=== PATIENT | female | born 1960 | race Caucasian/White ===

== ENCOUNTER 2016-12-05 16:43 | Inpatient (IN) | payer BC ==
[2016-12-05] MEDS ORDERED: DIPH,PERTUS(ACELL)TETVAC-LF 0.5 ML VIAL IM ONE (17:26)
[2016-12-05] MEDS ORDERED: IBUPROFEN 400 MG TAB PO PRN (18:07)
[2016-12-05] MEDS ORDERED: MORPHINE SULFATE 4 MG/ML SYRINGE IV PRN (18:07)
[2016-12-05] MEDS ORDERED: ACETAMINOPHEN TAB 325 MG TAB PO PRN (18:07)
[2016-12-05] MEDS ORDERED: ONDANSETRON 4 MG/2 ML VIAL IVP PRN (18:07)
[2016-12-05] MEDS ORDERED: NALOXONE 0.4 MG/ML 1 ML VIAL IV PRN (18:07)
[2016-12-05] MEDS ORDERED: AMPICILLIN-SULBACTAM 3 GM in SODIUM CHLORIDE 0.9% 100 ML IVPB STA (18:10)
--- NOTE | 2016-12-05 18:15 | ED ---
General Adult HPI - General Chief complaint: Animal Bite Stated complaint: cat bite/thumb & toe injury Time Seen by Provider: 12/05/16 17:26 Source: patient, RN notes reviewed Mode of arrival: ambulatory Limitations: no limitations - History of Present Illness Initial comments: Patient is a 56-year-old female presents to the emergency room for evaluation. Patient states that yesterday she was walking up steps and accidentally stubbed her right toe. Patient states she's having pain at the base of the right toe going up her foot. Patient denies taking Tylenol or Motrin for pain. Patient denies numbness or tingling in her toe. Patient also states that she was bit by a family members' cat over her left thumb yesterday. Patient states her thumb has become swollen and painful since. Patient states she has pain while trying to flex her thumb. Patient denies numbness or tingling in her thumb. Patient states the cat is up to date on immunizations. Patient states she's not up-to-date on her tetanus vaccine. Patient denies any other symptoms or complaints. - Related Data Home Medications Medication Instructions Recorded Confirmed Divalproex [Depakote] 1,000 mg PO HS 05/01/15 12/05/16 Hydrochlorothiazide [Hydrodiuril] 25 mg PO DAILY 05/01/15 12/05/16 QUEtiapine XR [SEROquel XR] 200 mg PO HS 05/01/15 12/05/16 Simvastatin [Zocor] 20 mg PO HS 05/01/15 12/05/16 Venlafaxine HCl ER [Effexor Xr] 150 mg PO DAILY 05/01/15 12/05/16 Atenolol [Tenormin] 50 mg PO DAILY 12/05/16 12/05/16 Dextroamphetamine/Amphetamine 20 mg PO QAM 12/05/16 12/05/16 [Adderall Xr] QUEtiapine [SEROquel] 50 mg PO HS 12/05/16 12/05/16 Zolpidem [Ambien] 10 mg PO HS PRN 12/05/16 12/05/16 clonazePAM [KlonoPIN] 0.5 mg PO DAILY 12/05/16 12/05/16 metFORMIN HCL [Glucophage] 500 mg PO DAILY 12/05/16 12/05/16 Allergies Allergy/AdvReac Type Severity Reaction Status Date / Time aminophylline Allergy Rash/Hives Verified 12/05/16 19:01 levofloxacin [From Levaquin] Allergy Rash/Hives Verified 12/05/16 19:01 phenobarbital Allergy Rash/Hives Verified 12/05/16 19:01 Review of Systems ROS Statement: Those systems with pertinent positive or pertinent negative responses have been documented in the HPI. ROS Other: All systems not noted in ROS Statement are negative. Past Medical History Past Medical History: Cancer, Diabetes Mellitus, GERD/Reflux, Hyperlipidemia, Hypertension, Skin Disorder History of Any Multi-Drug Resistant Organisms: None Reported Past Surgical History: Hysterectomy, Tonsillectomy Additional Past Surgical History / Comment(s): foot, tendon repair, melanoma removal Past Psychological History: Anxiety, Bipolar, Depression Smoking Status: Never smoker Past Alcohol Use History: Occasional Past Drug Use History: None Reported - Past Family History Father Family Medical History: Cancer Additional Family Medical History / Comment(s): at age 64 from lung cancer w/mets to brain Mother Family Medical History: Hypertension, Renal Disease General Exam - General Exam Comments Initial Comments: Sitting in exam room, no acute distress. Limitations: no limitations General appearance: alert, in no apparent distress Head exam: Present: atraumatic, normocephalic, normal inspection Eye exam: Present: normal appearance ENT exam: Present: normal exam Neck exam: Present: normal inspection Respiratory exam: Present: normal lung sounds bilaterally. Absent: respiratory distress Cardiovascular Exam: Present: regular rate, normal rhythm, normal heart sounds Left Hand Wrist exam: Present: tenderness, swelling. Absent: normal inspection ( puncture wound from Bite over middle phalanx of left thumb. Surrounding erythema and edema.), full ROM (limited flexion of thumb secondary to pain and edema) Vascular: Present: normal capillary refill (capillary refill less than 2 seconds ), radial pulse (2+), ulnar pulse (2+) Right Foot/Toe exam: Present: full ROM, tenderness (First MTP joint), swelling (first MTP joint) Neurovascular tendon exam: Present: no vascular compromise. Absent: pulse deficit (2+ dorsal pedal and posterior tibial pulses), abnormal cap refill ( capillary refill is in 2 seconds) Back exam: Present: normal inspection Neurological exam: Present: alert, oriented X3, CN II-XII intact Psychiatric exam: Present: normal affect, normal mood Skin exam: Present: warm, dry, normal color. Absent: rash Course Vital Signs 12/05/16 12/05/16 16:51 18:58 Temperature 98 F 98.9 F Pulse Rate 82 80 Respiratory 16 16 Rate Blood Pressure 141/82 156/78 O2 Sat by Pulse 98 99 Oximetry Medical Decision Making - Medical Decision Making Patient is a 48-year-old female since emergency room for evaluation of right great toe pain and left thumb Late. X-ray of right foot shows no acute fractures or dislocations. Advised patient to ice and elevate and follow up with primary care provider symptoms aren't improving in 7-10 days. Patient does have a puncture wound of left hand with surrounding erythema that traveling up the wrist. Case was discussed with Dr. Simental who also evaluated patient. Dr. Simental discussed case with Dr. Robles agreed to admit patient for further evaluation. Patient was started on IV Unasyn. - Lab Data Result diagrams: 12/05/16 18:35 12/05/16 18:35 - Radiology Data Radiology results: report reviewed, image reviewed Disposition Clinical Impression: Cat bite Disposition: ADMITTED IP TO THIS [facility] Condition: Stable Decision Date: 12/05/16
--- NOTE | 2016-12-05 18:16 | XR ---
EXAMINATION TYPE: XR hand complete LT DATE OF EXAM: 12/05/2016 COMPARISON: NONE HISTORY: Cat bite pain TECHNIQUE: 3 views FINDINGS: I see no fracture nor dislocation. Joint spaces are normal. The thumb appears intact. IMPRESSION: Negative left hand exam.
--- NOTE | 2016-12-05 18:17 | XR ---
EXAMINATION TYPE: XR foot complete RT DATE OF EXAM: 12/05/2016 COMPARISON: 02/22/2014 HISTORY: Pain TECHNIQUE: 3 views FINDINGS: I see no fracture nor dislocation. Metatarsals are intact. The total appears intact. There is plantar calcaneal spur. IMPRESSION: No acute abnormality of the right foot. No fracture. No change.
[2016-12-05] MEDS: KETOROLAC 30 MG/ML 1 ML VIAL IVP PRN ×2 (18:43→23:15)
[2016-12-05 18:48] LABS: Basophils # (A) 0.1 k/uL (0-0.2); Basophils % (A) 1 %; CH 30.8; CHCM 33.6; Eosinophils # (A) 0.2 k/uL (0-0.7); Eosinophils % (A) 2 %; HCT 40.5 % (34.0-46.0); HDW 2.45; HGB 13.7 gm/dL (11.4-16.0); Luc # (Auto) 0.09; Luc % (Auto) 1; Lymphocytes # (A) 1.8 k/uL (1.0-4.8); Lymphocytes % (A) 24 %; MCH 31.3 pg (25.0-35.0); MCV 92.2 fL (80.0-100.0); Mean Platelet Volume 6.9; Monocytes # (A) 0.4 k/uL (0-1.0); Monocytes % (A) 5 %; Neutrophils % (A) 67 %; RBC 4.39 m/uL (3.80-5.40); RDW 14.6 % (11.5-15.5); WBC 7.4 k/uL (3.8-10.6); WBC (Perox) 7.73
[2016-12-05] MEDS: SODIUM CHLORIDE 0.9% 1,000 ML IV SCH (18:48)
[2016-12-05 18:58] LABS: ALT 61 U/L (9-52); AST 38 U/L (14-36); Alkaline Phosphatase 80 U/L (38-126); Anion Gap 11 mmol/L; Blood Urea Nitrogen 15 mg/dL (7-17); Calcium 9.6 mg/dL (8.4-10.2); Carbon Dioxide 31 mmol/L (22-30); Chloride 99 mmol/L (98-107); Glucose 119 mg/dL (74-99); Non-African American GFR(MDRD) >60 (>60 ml/min/1.73 sqM); Potassium 3.7 mmol/L (3.5-5.1); Sodium 141 mmol/L (137-145); Total Bilirubin 0.8 mg/dL (0.2-1.3); Total Protein 6.7 g/dL (6.3-8.2)
[2016-12-05 19:19] VITALS: RESP 18
[2016-12-05 20:43] LABS: Glucose,Whole Blood 131 mg/dL (75-99)
[2016-12-05] MEDS ORDERED: ZOLPIDEM 10 MG TAB PO PRN (20:53)
[2016-12-05] MEDS ORDERED: QUEtiapine 50 MG TAB PO SCH (21:00)
[2016-12-05] MEDS ORDERED: ATORVASTATIN 10 MG TAB PO SCH (21:00)
[2016-12-05] MEDS ORDERED: NON-FORMULARY DRUG (Dextroamphetamine/Amphetamine [Adderall Xr] 20 MG) PO SCH (21:00)
[2016-12-05] MEDS ORDERED: DIVALPROEX 500 MG TABLET.DR PO SCH (21:00)
[2016-12-05] MEDS: HYDROCHLOROTHIAZIDE 25 MG TAB PO SCH (21:38)
[2016-12-05] MEDS: clonazePAM 0.5 MG TAB PO SCH (21:38)
[2016-12-05] MEDS: VENLAFAXINE HCL ER 150 MG CAP PO SCH (21:39)
[2016-12-05] MEDS: ATENOLOL 50 MG TAB PO SCH (21:39)
[2016-12-05] MEDS: metFORMIN 500 MG TAB PO SCH (21:39)
[2016-12-06 07:03] LABS: Glucose,Whole Blood 118 mg/dL (75-99)
[2016-12-06 07:22] LABS: Basophils % (A) 0 %; CH 31.1; CHCM 32.7; Eosinophils # (A) 0.2 k/uL (0-0.7); Eosinophils % (A) 3 %; HCT 37.8 % (34.0-46.0); HGB 12.3 gm/dL (11.4-16.0); Luc % (Auto) 2; Lymphocytes # (A) 2.2 k/uL (1.0-4.8); Lymphocytes % (A) 37 %; MCH 31.2 pg (25.0-35.0); MCHC 32.7 g/dL (31.0-37.0); MCV 95.7 fL (80.0-100.0); Mean Platelet Volume 7.5; Monocytes # (A) 0.4 k/uL (0-1.0); Monocytes % (A) 7 %; Neutrophils % (A) 52 %; RBC 3.95 m/uL (3.80-5.40); RDW 15.2 % (11.5-15.5); WBC 5.8 k/uL (3.8-10.6); WBC (Perox) 6.14
[2016-12-06 07:35] LABS: ALT 53 U/L (9-52); AST 32 U/L (14-36); Alkaline Phosphatase 66 U/L (38-126); Anion Gap 9 mmol/L; Blood Urea Nitrogen 17 mg/dL (7-17); Calcium 8.9 mg/dL (8.4-10.2); Carbon Dioxide 29 mmol/L (22-30); Chloride 104 mmol/L (98-107); Glucose 113 mg/dL (74-99); Non-African American GFR(MDRD) >60 (>60 ml/min/1.73 sqM); Potassium 3.7 mmol/L (3.5-5.1); Sodium 142 mmol/L (137-145); Total Bilirubin 0.6 mg/dL (0.2-1.3); Total Protein 5.6 g/dL (6.3-8.2)
[2016-12-06 08:14] VITALS: BP 109/51; PULSE 53; TEMP 97.4
[2016-12-06] MEDS: metFORMIN 500 MG TAB PO SCH (08:16)
[2016-12-06] MEDS: ATENOLOL 50 MG TAB PO SCH (08:16)
[2016-12-06] MEDS: VENLAFAXINE HCL ER 150 MG CAP PO SCH (08:16)
[2016-12-06] MEDS: HYDROCHLOROTHIAZIDE 25 MG TAB PO SCH (08:16)
[2016-12-06] MEDS: SODIUM CHLORIDE 0.9% 1,000 ML IV SCH (08:16)
[2016-12-06] MEDS: clonazePAM 0.5 MG TAB PO SCH (08:19)
--- NOTE | 2016-12-06 09:14 | P.HPOR ---
History of Present Illness H&P Date: 12/06/16 Chief Complaint: Cat bite left thumb Pleasant 56 year old female presented to the ER yesterday with complaints of a cat bite to her left thumb from 12/04. She was trying to give her cat a sitz bath when it bit her on the left thumb. She states the cat is up to date on all of its vaccinations. She states the wound has been draining a clear/bloody fluid and the thumb has become stiff and erythema has spread up to the base of her 1st metacarpal. The same day, 12/04, she was walking in her front lawn and was going to step up on the driveway when her right great toe flexed and stubbed against the concrete. The toe has been painful at the MTP and has become stiff since the injury. In the ER X-ray of the toe and thumb were negative and she was started on Unasyn for the cat bite. This morning she states the stiffness in the left thumb has gone down but it feels like the dorsum of her hand is bruised. She denies numbness/tingling in her extremities, fever, chills, nausea/vomiting. Past Medical History Past Medical History: Cancer, Diabetes Mellitus, GERD/Reflux, Hyperlipidemia, Hypertension, Skin Disorder Additional Past Medical History / Comment(s): FATTY LIVER, DOES'NT USE CPAP MACHINE. PAST MELANOMA ON BACK OF LT SHOULDER, HIATAL HERNIA, ANX.DEPRESSION, BIPOLAR, BROKE RT FOOT 2013, CHRONIC BACK PAIN SCIATIC NERVE PAIN DOES DOWN RT BUTTOCK/LEG, "SEASONAL ASTHMA"/BRONCHITS History of Any Multi-Drug Resistant Organisms: None Reported Past Surgical History: Hysterectomy, Tonsillectomy Additional Past Surgical History / Comment(s): foot, tendon repair, melanoma removal Past Anesthesia/Blood Transfusion Reactions: No Reported Reaction Past Psychological History: Anxiety, Bipolar, Depression Smoking Status: Never smoker Past Alcohol Use History: Occasional Past Drug Use History: None Reported - Past Family History Father Family Medical History: Cancer Additional Family Medical History / Comment(s): at age 64 from lung cancer w/mets to brain Mother Family Medical History: Hypertension, Renal Disease Medications and Allergies Home Medications Medication Instructions Recorded Confirmed Type Divalproex [Depakote] 1,000 mg PO HS 05/01/15 12/05/16 History Hydrochlorothiazide [Hydrodiuril] 25 mg PO DAILY 05/01/15 12/05/16 History QUEtiapine XR [SEROquel XR] 200 mg PO HS 05/01/15 12/05/16 History Simvastatin [Zocor] 20 mg PO HS 05/01/15 12/05/16 History Venlafaxine HCl ER [Effexor Xr] 150 mg PO DAILY 05/01/15 12/05/16 History Atenolol [Tenormin] 50 mg PO DAILY 12/05/16 12/05/16 History Dextroamphetamine/Amphetamine 20 mg PO QAM 12/05/16 12/05/16 History [Adderall Xr] QUEtiapine [SEROquel] 50 mg PO HS 12/05/16 12/05/16 History Zolpidem [Ambien] 10 mg PO HS PRN 12/05/16 12/05/16 History clonazePAM [KlonoPIN] 0.5 mg PO DAILY 12/05/16 12/05/16 History metFORMIN HCL [Glucophage] 500 mg PO DAILY 12/05/16 12/05/16 History Allergies Allergy/AdvReac Type Severity Reaction Status Date / Time aminophylline Allergy Rash/Hives Verified 12/05/16 19:01 levofloxacin [From Levaquin] Allergy Rash/Hives Verified 12/05/16 19:01 phenobarbital Allergy Rash/Hives Verified 12/05/16 19:01 Physical Examination There is an open 1 cm wound on the dorsum of her left thumb over the middle portion of the proximal phalanx with no extension over the MTP or IP joints. There is also a single puncture wound over the volar aspect of the 1st MTP joint of the left hand. There is minimal reduction in active range of motion of the thumb with opposition intact. Erythema extends on the dorsum of the left hand to the base of the 1st metacarpal but dose not extend medially. Right great toe - erythema over the dorsal side of the MTP, skin is intact, neurovascularly intact with minimal reduction of active flexion. Results xray of the left hand reveals no fracture or bony abnormality, minimal soft tissue swelling. Xray of right foot reveals no fracture or bony abnormality. - Labs Labs: Abnormal Lab Results - Last 24 Hours (Table) 12/05/16 12/05/16 12/06/16 Range/Units 18:35 20:41 06:54 Carbon Dioxide 31 H (22-30) mmol/L Glucose 119 H 113 H (74-99) mg/dL POC Glucose (mg/dL) 131 H (75-99) mg/dL AST 38 H (14-36) U/L ALT 61 H 53 H (9-52) U/L Total Protein 5.6 L (6.3-8.2) g/dL 12/06/16 Range/Units 07:02 Carbon Dioxide (22-30) mmol/L Glucose (74-99) mg/dL POC Glucose (mg/dL) 118 H (75-99) mg/dL AST (14-36) U/L ALT (9-52) U/L Total Protein (6.3-8.2) g/dL H & H 12/05/16 12/06/16 Range/Units 18:35 06:54 Hgb 13.7 12.3 (11.4-16.0) gm/dL Hct 40.5 37.8 (34.0-46.0) % Result Diagrams: 12/06/16 06:54 12/06/16 06:54 Assessment and Plan (1) Cat bite Status: Acute (2) Cellulitis of left hand Status: Acute (3) Contusion of right great toe without damage to nail Status: Acute Plan: Left thumb - warm soaks BID, K-pad as tolerated, encouraged movement of the left hand and fingers, NPO after midnight and will reevaluate in the morning, defer antibiotic treatment to IM Right great toe - rigid sole post op shoe Time with Patient: Less than 30
[2016-12-06 11:58] LABS: Glucose,Whole Blood 135 mg/dL (75-99)
[2016-12-06] MEDS ORDERED: AMPICILLIN-SULBACTAM 3 GM in SODIUM CHLORIDE 0.9% 100 ML IVPB SCH (12:00)
--- NOTE | 2016-12-06 13:54 | P.HPIM ---
History of Present Illness Pleasant 56 year old female presented to the ER yesterday with complaints of a cat bite to her left thumb from 12/04. Patient is found as the lightest of the left, extending from proximal interphalangeal area up to the base of the thumb with a lymphangitic streaking, patient was given Unasyn with improvement in her symptoms and patient has much significant improvement I do not believe patient will need to stay in the hospital for IV antibiotics and patient will be discharged on Augmentin. Swelling is very minimal at this point of time redness is very minimal at this time. She and also had a traumatic injury to the right great toe with some inflammation without any cellulitis or fracture . She denies numbness/tingling in her extremities, fever, chills, nausea/ vomiting. Review of Systems REVIEW OF SYSTEMS: CONSTITUTIONAL: No fever, no malaise, no fatigue. HEENT: No recent visual problems or hearing problems. Denied any sore throat. CARDIOVASCULAR: No chest pain, orthopnea, PND, no palpitations, no syncope. PULMONARY: No shortness of breath, no cough, no hemoptysis. GASTROINTESTINAL: No diarrhea, no nausea, no vomiting, no abdominal pain. Normoactive bowel sounds. NEUROLOGICAL: No headaches, no weakness, no numbness. HEMATOLOGICAL: Denies any bleeding or petechiae. GENITOURINARY: Denies any burning micturition, frequency, or urgency. MUSCULOSKELETAL/RHEUMATOLOGICAL: As mentioned in HPI ENDOCRINE: Denies any polyuria or polydipsia. The rest of the 14-point review of systems is negative. Past Medical History Past Medical History: Cancer, Diabetes Mellitus, GERD/Reflux, Hyperlipidemia, Hypertension, Skin Disorder Additional Past Medical History / Comment(s): FATTY LIVER, DOES'NT USE CPAP MACHINE. PAST MELANOMA ON BACK OF LT SHOULDER, HIATAL HERNIA, ANX.DEPRESSION, BIPOLAR, BROKE RT FOOT 2013, CHRONIC BACK PAIN SCIATIC NERVE PAIN DOES DOWN RT BUTTOCK/LEG, "SEASONAL ASTHMA"/BRONCHITS History of Any Multi-Drug Resistant Organisms: None Reported Past Surgical History: Hysterectomy, Tonsillectomy Additional Past Surgical History / Comment(s): foot, tendon repair, melanoma removal Past Anesthesia/Blood Transfusion Reactions: No Reported Reaction Past Psychological History: Anxiety, Bipolar, Depression Smoking Status: Never smoker Past Alcohol Use History: Occasional Past Drug Use History: None Reported - Past Family History Father Family Medical History: Cancer Additional Family Medical History / Comment(s): at age 64 from lung cancer w/mets to brain Mother Family Medical History: Hypertension, Renal Disease Medications and Allergies Home Medications Medication Instructions Recorded Confirmed Type Divalproex [Depakote] 1,000 mg PO HS 05/01/15 12/05/16 History Hydrochlorothiazide [Hydrodiuril] 25 mg PO DAILY 05/01/15 12/05/16 History QUEtiapine XR [SEROquel XR] 200 mg PO HS 05/01/15 12/05/16 History Simvastatin [Zocor] 20 mg PO HS 05/01/15 12/05/16 History Venlafaxine HCl ER [Effexor Xr] 150 mg PO DAILY 05/01/15 12/05/16 History Atenolol [Tenormin] 50 mg PO DAILY 12/05/16 12/05/16 History Dextroamphetamine/Amphetamine 20 mg PO QAM 12/05/16 12/05/16 History [Adderall Xr] QUEtiapine [SEROquel] 50 mg PO HS 12/05/16 12/05/16 History Zolpidem [Ambien] 10 mg PO HS PRN 12/05/16 12/05/16 History clonazePAM [KlonoPIN] 0.5 mg PO DAILY 12/05/16 12/05/16 History metFORMIN HCL [Glucophage] 500 mg PO DAILY 12/05/16 12/05/16 History Amoxicillin/Potassium Clav 1 tab PO Q12HR 12/06/16 12/06/16 History [Augmentin 875-125 Tablet] Allergies Allergy/AdvReac Type Severity Reaction Status Date / Time aminophylline Allergy Rash/Hives Verified 12/05/16 19:01 levofloxacin [From Levaquin] Allergy Rash/Hives Verified 12/05/16 19:01 phenobarbital Allergy Rash/Hives Verified 12/05/16 19:01 Physical Exam Vitals: Vital Signs Temp Pulse Pulse Pulse Resp BP BP 12/06/16 08:00 97.4 F L 53 L 18 109/51 12/06/16 04:00 97.9 F 65 18 153/75 12/05/16 23:57 18 12/05/16 20:00 18 12/05/16 19:18 97.8 F 71 18 178/84 12/05/16 18:58 98.9 F 80 16 156/78 12/05/16 16:51 98 F 82 16 141/82 Pulse Ox 12/06/16 08:00 96 12/06/16 04:00 96 12/05/16 23:57 12/05/16 20:00 12/05/16 19:18 96 12/05/16 18:58 99 12/05/16 16:51 98 Intake and Output 12/05/16 12/06/16 12/06/16 22:59 06:59 14:59 Other: Voiding Method Toilet Toilet Toilet Weight 131.5 kg PHYSICAL EXAMINATION: GENERAL: The patient is alert and oriented x3, not in any acute distress. Well developed, well nourished. HEENT: Pupils are round and equally reacting to light. EOMI. No scleral icterus. No conjunctival pallor. Normocephalic, atraumatic. No pharyngeal erythema. No thyromegaly. CARDIOVASCULAR: S1 and S2 present. No murmurs, rubs, or gallops. PULMONARY: Chest is clear to auscultation, no wheezing or crackles. ABDOMEN: Soft, nontender, nondistended, normoactive bowel sounds. No palpable organomegaly. MUSCULOSKELETAL: As mentioned in HPI EXTREMITIES: No cyanosis, clubbing, or pedal edema. NEUROLOGICAL: Gross neurological examination did not reveal any focal deficits. SKIN: No rashes. Results CBC & Chem 7: 12/06/16 06:54 12/06/16 06:54 Labs: Abnormal Lab Results - Last 24 Hours (Table) 12/05/16 12/05/16 12/06/16 Range/Units 18:35 20:41 06:54 Carbon Dioxide 31 H (22-30) mmol/L Glucose 119 H 113 H (74-99) mg/dL POC Glucose (mg/dL) 131 H (75-99) mg/dL AST 38 H (14-36) U/L ALT 61 H 53 H (9-52) U/L Total Protein 5.6 L (6.3-8.2) g/dL 12/06/16 12/06/16 Range/Units 07:02 11:56 Carbon Dioxide (22-30) mmol/L Glucose (74-99) mg/dL POC Glucose (mg/dL) 118 H 135 H (75-99) mg/dL AST (14-36) U/L ALT (9-52) U/L Total Protein (6.3-8.2) g/dL Thrombosis Risk Factor Assmnt - Choose All That Apply Any of the Below Risk Factors Present?: Yes Each Factor Represents 1 point: Age 41-60 years, Obesity (BMI >25) Other Risk Factors: No Other congenital or acquired thrombophilia - If yes, enter type in comment: No Thrombosis Risk Factor Assessment Total Risk Factor Score: 2 Thrombosis Risk Factor Assessment Level: Low Risk Assessment and Plan Plan: #1 cellulitis, of the right thumb secondary to cat bite, patient received tetanus toxoid immunization and patient was discharged on Augmentin. 2 inflammation of the right great toe secondary to trauma without any fracture or cellulitis. #3 gastroesophageal reflux disease #4 hypertension #5 hyperlipidemia #6 type 2 diabetes mellitus For above-mentioned chronic medical problems patient will continue her home medications and patient will be discharged today with Augmentin for 7 days and follow up with primary care physician and orthopedic surgery as an outpatient
--- NOTE | 2016-12-06 13:54 | P.DS ---
Providers Date of admission: 12/06/16 09:28 Attending physician: José Rodríguez Consults: 12/05/16 20:57 Consult Physician Routine Consulting Provider: Reece Barfield Consult Reason/Comments: medical management Do you want consulting provider notified?: Yes, Notify in am Primary care physician: Kristie Villasenor [facility] Hospital Course: Please refer to my HPI Patient Condition at Discharge: Stable Plan - Discharge Summary New Discharge Prescriptions: No Action Venlafaxine HCl ER [Effexor Xr] 150 mg PO DAILY Simvastatin [Zocor] 20 mg PO HS QUEtiapine XR [SEROquel XR] 200 mg PO HS Divalproex [Depakote] 1,000 mg PO HS Hydrochlorothiazide [Hydrodiuril] 25 mg PO DAILY clonazePAM [KlonoPIN] 0.5 mg PO DAILY Dextroamphetamine/Amphetamine [Adderall Xr] 20 mg PO QAM Atenolol [Tenormin] 50 mg PO DAILY QUEtiapine [SEROquel] 50 mg PO HS metFORMIN HCL [Glucophage] 500 mg PO DAILY Zolpidem [Ambien] 10 mg PO HS PRN PRN Reason: Insomnia Amoxicillin/Potassium Clav [Augmentin 875-125 Tablet] 1 tab PO Q12HR Discharge Medication List Divalproex [Depakote] 1,000 mg PO HS 05/01/15 [History] Hydrochlorothiazide [Hydrodiuril] 25 mg PO DAILY 05/01/15 [History] QUEtiapine XR [SEROquel XR] 200 mg PO HS 05/01/15 [History] Simvastatin [Zocor] 20 mg PO HS 05/01/15 [History] Venlafaxine HCl ER [Effexor Xr] 150 mg PO DAILY 05/01/15 [History] Atenolol [Tenormin] 50 mg PO DAILY 12/05/16 [History] Dextroamphetamine/Amphetamine [Adderall Xr] 20 mg PO QAM 12/05/16 [History] QUEtiapine [SEROquel] 50 mg PO HS 12/05/16 [History] Zolpidem [Ambien] 10 mg PO HS PRN 12/05/16 [History] clonazePAM [KlonoPIN] 0.5 mg PO DAILY 12/05/16 [History] metFORMIN HCL [Glucophage] 500 mg PO DAILY 12/05/16 [History] Amoxicillin/Potassium Clav [Augmentin 875-125 Tablet] 1 tab PO Q12HR 12/06/16 [ History] Follow up Appointment(s)/Referral(s): Kristie Villasenor MD [Primary Care Provider] - 1-2 days José Rodríguez MD [STAFF PHYSICIAN] - 1 Week Patient Instructions/Handouts: Animal Bite (ED)
== END 2016-12-06 13:52 | disposition home or self-care (01) | DRG 603 ==
LOC: EC 16:43 → 3OBS 18:08 → OBSVTOIN 12-06 09:28
PROVIDERS: ADMIT Orthopaedic Surgery; ATTEND Orthopaedic Surgery
DX: L03.114 Cellulitis of left upper limb (principal); K76.0 Fatty (change of) liver, not elsewhere classified; I10 Essential (primary) hypertension; S61.432A Puncture wound without foreign body of left hand, initial encounter; K21.9 Gastro-esophageal reflux disease without esophagitis; J45.909 Unspecified asthma, uncomplicated; F41.9 Anxiety disorder, unspecified; F32.9 Major depressive disorder, single episode, unspecified; E78.5 Hyperlipidemia, unspecified; E11.9 Type 2 diabetes mellitus without complications; G89.29 Other chronic pain; K44.9 Diaphragmatic hernia without obstruction or gangrene; M54.9 Dorsalgia, unspecified; S99.821A Other specified injuries of right foot, initial encounter; Z79.84 Long term (current) use of oral hypoglycemic drugs; Z79.899 Other long term (current) drug therapy; Z88.1 Allergy status to other antibiotic agents; Z88.8 Allergy status to other drugs, medicaments and biological substances; Z85.820 Personal history of malignant melanoma of skin; Z82.49 Family history of ischemic heart disease and other diseases of the circulatory system; W55.01XA Bitten by cat, initial encounter; X58.XXXA Exposure to other specified factors, initial encounter; Y92.9 Unspecified place or not applicable
CPT/HCPCS: 80053; 83036; 85025; 87040; 90715

== ENCOUNTER 2019-11-21 03:12 | Observation (INO) | payer BC ==
[2019-11-21] MEDS ORDERED: SODIUM CHLORIDE 0.9% 1,000 ML IV STA (03:35)
--- NOTE | 2019-11-21 03:58 | XR ---
EXAMINATION TYPE: XR chest 2V DATE OF EXAM: 11/21/2019 COMPARISON: NONE HISTORY: Syncope. Weakness TECHNIQUE: FINDINGS: Heart and mediastinum are normal. Lungs are clear. Diaphragm is normal. Bony thorax appears normal. IMPRESSION: Normal chest.
--- NOTE | 2019-11-21 04:00 | ED ---
General Adult HPI - General Chief complaint: Syncope Stated complaint: Weakness Time Seen by Provider: 11/21/19 03:19 Source: patient, family Mode of arrival: EMS - History of Present Illness Initial comments: Danielle is a 59-year-old morbidly obese female who presents the ER today for evaluation after syncopal episode at home. Patient reports that she was sitting on her couch when she had an urge to have a bowel movement, she states that this is pretty typical for her she has developed some lactose intolerant and after eating cereal frequent has a sudden urge to use the restroom. Patient reports she stood up and felt lightheaded she started walking in the hallway and had a syncopal event following backwards landing on her back. She sustained a significant head trauma. She woke to her friend assisting her, she did not have any chest pain or abdominal pain nausea or vomiting. EMS was called. Patient was noted to be mildly hypotensive but otherwise well. - Related Data Home Medications Medication Instructions Recorded Confirmed Divalproex [Depakote] 1,000 mg PO HS 05/01/15 12/05/16 Hydrochlorothiazide [Hydrodiuril] 25 mg PO DAILY 05/01/15 12/05/16 QUEtiapine XR [SEROquel XR] 200 mg PO HS 05/01/15 12/05/16 Simvastatin [Zocor] 20 mg PO HS 05/01/15 12/05/16 Venlafaxine HCl ER [Effexor Xr] 150 mg PO DAILY 05/01/15 12/05/16 Atenolol [Tenormin] 50 mg PO DAILY 12/05/16 12/05/16 Dextroamphetamine/Amphetamine 20 mg PO QAM 12/05/16 12/05/16 [Adderall Xr] QUEtiapine [SEROquel] 50 mg PO HS 12/05/16 12/05/16 Zolpidem [Ambien] 10 mg PO HS PRN 12/05/16 12/05/16 clonazePAM [KlonoPIN] 0.5 mg PO DAILY 12/05/16 12/05/16 metFORMIN HCL [Glucophage] 500 mg PO DAILY 12/05/16 12/05/16 Amoxicillin/Potassium Clav 1 tab PO Q12HR 12/06/16 12/06/16 [Augmentin 875-125 Tablet] Allergies Allergy/AdvReac Type Severity Reaction Status Date / Time aminophylline Allergy Rash/Hives Verified 11/21/19 03:23 levofloxacin [From Levaquin] Allergy Rash/Hives Verified 11/21/19 03:23 phenobarbital Allergy Rash/Hives Verified 11/21/19 03:23 Review of Systems ROS Statement: Those systems with pertinent positive or pertinent negative responses have been documented in the HPI. ROS Other: All systems not noted in ROS Statement are negative. Past Medical History Past Medical History: Cancer, Diabetes Mellitus, GERD/Reflux, Hyperlipidemia, Hypertension, Skin Disorder Additional Past Medical History / Comment(s): FATTY LIVER, DOES'NT USE CPAP M [place]. PAST MELANOMA ON BACK OF LT SHOULDER, HIATAL HERNIA, ANX.DEPRESSION, BIPOLAR, BROKE RT FOOT 2013, CHRONIC BACK PAIN SCIATIC NERVE PAIN DOES DOWN RT BUTTOCK/LEG, "SEASONAL ASTHMA"/BRONCHITS History of Any Multi-Drug Resistant Organisms: None Reported Past Surgical History: Hysterectomy, Tonsillectomy Additional Past Surgical History / Comment(s): foot, tendon repair, melanoma removal Past Anesthesia/Blood Transfusion Reactions: No Reported Reaction Past Psychological History: Anxiety, Bipolar, Depression Smoking Status: Never smoker Past Alcohol Use History: Occasional Past Drug Use History: None Reported - Past Family History Father Family Medical History: Cancer Additional Family Medical History / Comment(s): at age 64 from lung cancer w/mets to brain Mother Family Medical History: Hypertension, Renal Disease General Exam - General Exam Comments Initial Comments: Physical Exam GENERAL: Patient is well-developed and well-nourished. Patient is nontoxic and well-hydrated and is in no distress. HENT: Normocephalic, Atraumatic. EYES: PERRL, EOMI PULMONARY: Unlabored respirations. CARDIOVASCULAR: RRR Warm and well perfused extremities ABDOMEN: Non-distended SKIN: No rashes or bruising : Deferred NEUROLOGIC: Alert and oriented Normal speech Normal gait MUSCULOSKELETAL: Moving all extremities with no apparent injury PSYCHIATRIC: No SI/HI Course Vital Signs 11/21/19 11/21/19 11/21/19 03:17 05:00 05:59 Temperature 97 F L 97.4 F L Pulse Rate 69 66 66 Respiratory 18 18 18 Rate Blood Pressure 96/52 114/61 137/77 O2 Sat by Pulse 96 96 95 Oximetry EKG Findings - EKG Comments: EKG Findings:: EKG was obtained due to syncope, EKG was obtained at 3:39 AM, rate is 79 rhythm is sinus with a first-degree AV block there is normal axis, IN is prolonged at 242, QRS 82 QTc [address] elevations or depressions no evidence of acute ischemia or infarction. Medical Decision Making - Medical Decision Making She was seen and evaluated history is obtained from the patient excited 59-year-old female has syncopal episode walking to the restroom was mildly hypotensive on arrival Labs and imaging were ordered EKG is nonischemic Labs with acute kidney injury no other significant abnormalities Chest x-ray unremarkable Pleurisy in the ER the patient has developed worsening right-sided chest wall pain suspect this is due to her fall from the syncopal episode, patient gas at bedside concern because she had a fall with pneumothorax, a computed tomography scan will be ordered Patient be admitted for syncope acute kidney injury persistent hypotension despite IV fluids - Lab Data Result diagrams: 11/21/19 03:48 11/21/19 03:48 Lab Results 11/21/19 11/21/19 11/21/19 Range/Units 03:48 03:48 03:48 WBC 9.2 (3.8-10.6) k/uL RBC 4.45 (3.80-5.40) m/uL Hgb 12.9 (11.4-16.0) gm/dL Hct 40.3 (34.0-46.0) % MCV 90.5 (80.0-100.0) fL MCH 28.9 (25.0-35.0) pg MCHC 31.9 (31.0-37.0) g/dL RDW 14.4 (11.5-15.5) % Plt Count 238 (150-450) k/uL Neutrophils % 66 % Lymphocytes % 25 % Monocytes % 5 % Eosinophils % 2 % Basophils % 1 % Neutrophils # 6.0 (1.3-7.7) k/uL Lymphocytes # 2.3 (1.0-4.8) k/uL Monocytes # 0.5 (0-1.0) k/uL Eosinophils # 0.2 (0-0.7) k/uL Basophils # 0.1 (0-0.2) k/uL PT 10.2 (9.0-12.0) sec INR 1.0 (<1.2) APTT 22.9 (22.0-30.0) sec D-Dimer 0.54 (<0.60) mg/L FEU Sodium 137 (137-145) mmol/L Potassium 3.9 (3.5-5.1) mmol/L Chloride 103 (98-107) mmol/L Carbon Dioxide 22 (22-30) mmol/L Anion Gap 12 mmol/L BUN 15 (7-17) mg/dL Creatinine 1.22 H (0.52-1.04) mg/dL Est GFR (CKD-EPI)AfAm 55 (>60 ml/min/1.73 sqM) Est GFR (CKD-EPI)NonAf 48 (>60 ml/min/1.73 sqM) Glucose 165 H (74-99) mg/dL Calcium 9.4 (8.4-10.2) mg/dL Total Bilirubin 0.8 (0.2-1.3) mg/dL AST 33 (14-36) U/L ALT 34 (4-34) U/L Alkaline Phosphatase 70 (38-126) U/L Troponin I (0.000-0.034) ng/mL Total Protein 5.8 L (6.3-8.2) g/dL Albumin 3.8 (3.5-5.0) g/dL Urine Color Urine Appearance (Clear) Urine pH (5.0-8.0) Ur Specific [place] (1.001-1.035) Urine Protein (Negative) Urine Glucose (UA) (Negative) Urine Ketones (Negative) Urine Blood (Negative) Urine Nitrite (Negative) Urine Bilirubin (Negative) Urine Urobilinogen (<2.0) mg/dL Ur Leukocyte Esterase (Negative) Urine RBC (0-5) /hpf Urine WBC (0-5) /hpf Ur Squamous Epith Cells (0-4) /hpf Hyaline Casts (0-2) /lpf Urine Mucus (None) /hpf 11/21/19 11/21/19 Range/Units 03:48 05:00 WBC (3.8-10.6) k/uL RBC (3.80-5.40) m/uL Hgb (11.4-16.0) gm/dL Hct (34.0-46.0) % MCV (80.0-100.0) fL MCH (25.0-35.0) pg MCHC (31.0-37.0) g/dL RDW (11.5-15.5) % Plt Count (150-450) k/uL Neutrophils % % Lymphocytes % % Monocytes % % Eosinophils % % Basophils % % Neutrophils # (1.3-7.7) k/uL Lymphocytes # (1.0-4.8) k/uL Monocytes # (0-1.0) k/uL Eosinophils # (0-0.7) k/uL Basophils # (0-0.2) k/uL PT (9.0-12.0) sec INR (<1.2) APTT (22.0-30.0) sec D-Dimer (<0.60) mg/L FEU Sodium (137-145) mmol/L Potassium (3.5-5.1) mmol/L Chloride (98-107) mmol/L Carbon Dioxide (22-30) mmol/L Anion Gap mmol/L BUN (7-17) mg/dL Creatinine (0.52-1.04) mg/dL Est GFR (CKD-EPI)AfAm (>60 ml/min/1.73 sqM) Est GFR (CKD-EPI)NonAf (>60 ml/min/1.73 sqM) Glucose (74-99) mg/dL Calcium (8.4-10.2) mg/dL Total Bilirubin (0.2-1.3) mg/dL AST (14-36) U/L ALT (4-34) U/L Alkaline Phosphatase (38-126) U/L Troponin I <0.012 (0.000-0.034) ng/mL Total Protein (6.3-8.2) g/dL Albumin (3.5-5.0) g/dL Urine Color Yellow Urine Appearance Cloudy H (Clear) Urine pH 5.5 (5.0-8.0) Ur Specific [place] 1.021 (1.001-1.035) Urine Protein 2+ H (Negative) Urine Glucose (UA) Negative (Negative) Urine Ketones Trace H (Negative) Urine Blood Negative (Negative) Urine Nitrite Negative (Negative) Urine Bilirubin Negative (Negative) Urine Urobilinogen 2.0 (<2.0) mg/dL Ur Leukocyte Esterase Small H (Negative) Urine RBC 3 (0-5) /hpf Urine WBC 6 H (0-5) /hpf Ur Squamous Epith Cells 13 H (0-4) /hpf Hyaline Casts 115 H (0-2) /lpf Urine Mucus Few H (None) /hpf Disposition Clinical Impression: Syncope, MATT (acute kidney injury), Hypotension Disposition: ADMITTED IP TO THIS HOSP Condition: Stable
[2019-11-21 04:06] LABS: Basophils # (A) 0.1 k/uL (0-0.2); Basophils % (A) 1 %; Eosinophils # (A) 0.2 k/uL (0-0.7); Eosinophils % (A) 2 %; HCT 40.3 % (34.0-46.0); HGB 12.9 gm/dL (11.4-16.0); Lymphocytes # (A) 2.3 k/uL (1.0-4.8); Lymphocytes % (A) 25 %; MCH 28.9 pg (25.0-35.0); MCHC 31.9 g/dL (31.0-37.0); MCV 90.5 fL (80.0-100.0); Monocytes # (A) 0.5 k/uL (0-1.0); Monocytes % (A) 5 %; Neutrophils % (A) 66 %; Platelet Count 238 k/uL (150-450); RBC 4.45 m/uL (3.80-5.40); RDW 14.4 % (11.5-15.5); WBC 9.2 k/uL (3.8-10.6)
[2019-11-21 04:10] LABS: Albumin 3.8 g/dL (3.5-5.0); Calcium 9.4 mg/dL (8.4-10.2); Potassium 3.9 mmol/L (3.5-5.1); Total Bilirubin 0.8 mg/dL (0.2-1.3); Total Protein 5.8 g/dL (6.3-8.2)
[2019-11-21 04:22] LABS: D-Dimer 0.54 mg/L FEU (<0.60); Partial Thromboplastin Time 22.9 sec (22.0-30.0); Prothrombin Time 10.2 sec (9.0-12.0)
[2019-11-21 05:13] LABS: Appearance,Urine Cloudy (Clear); Bilirubin,Urine Negative (Negative); Blood,Urine Negative (Negative); Color,Urine Yellow; Glucose,Urine (UA) Negative (Negative); Hyaline Casts,Urine 115 /lpf (0-2); Ketones,Urine Trace (Negative); Leukocyte Esterase,Urine Small (Negative); Mucus,Urine Few /hpf; Nitrite,Urine Negative (Negative); PH, Urine 5.5 (5.0-8.0); Protein,Urine 2+ (Negative); RBC,Urine 3 /hpf (0-5); Specific Gravity,Urine 1.021 (1.001-1.035); Squamous Epithelial Cell,Urine 13 /hpf (0-4); WBC,Urine 6 /hpf (0-5)
[2019-11-21] MEDS ORDERED: MORPHINE SULFATE 4 MG/ML SYRINGE IVP STA (05:13)
[2019-11-21] MEDS ORDERED: ACETAMINOPHEN TAB 325 MG TAB PO PRN (05:37)
[2019-11-21] MEDS ORDERED: ONDANSETRON 4 MG/2 ML VIAL IVP PRN (05:37)
[2019-11-21] MEDS ORDERED: NALOXONE 0.4 MG/ML 1 ML VIAL IV PRN (05:37)
--- NOTE | 2019-11-21 07:18 | CT ---
EXAMINATION TYPE: CT chest wo con DATE OF EXAM: 11/21/2019 COMPARISON: None HISTORY: Right sided chest pain after fall CT DLP: 853.8 mGycm, Automated exposure control for dose reduction was used. CONTRAST: Performed injected with 0 mL of Isovue 300. TECHNIQUE: Axial images were obtained at 5 mm thick sections. Reconstructed images are reviewed on [employer] computer in the coronal plane. FINDINGS: Small Portion of the thyroid visualized is normal. No suspicious lung nodules or focal infiltrates are present. No enlarged mediastinal or hilar adenopathy is evident. There are couple of scattered small lymph n odes in the superior mediastinum The ascending aorta diameter at the level of the main pulmonary basilio ry is 3.6 cm. The main pulmonary artery diameter at the bifurcation is 3.2 cm. No pneumothorax is evident. No displaced rib fractures are identified. Limited CT sections are obtained through the upper abdomen. There has been a prior cholecystectomy IMPRESSIONS: 1. No acute posttraumatic changes
[2019-11-21] MEDS: SODIUM CHLORIDE 0.9% 1,000 ML IV SCH ×3 (08:13→21:28)
[2019-11-21] MEDS ORDERED: DICYCLOMINE 20 MG TAB PO PRN (16:17)
[2019-11-21] MEDS ORDERED: ZOLPIDEM 5 MG TAB PO PRN (16:21)
[2019-11-21 16:33] LABS: Glucose,Whole Blood 115 mg/dL (75-99)
[2019-11-21] MEDS: INSULIN ASPART (NovoLOG) 100 UNIT/ML VIAL SQ SCH ×2 (16:59→21:22)
[2019-11-21] MEDS ORDERED: HYDROmorphone 0.5 MG/0.5 ML SYRINGE IVP PRN (19:09)
[2019-11-21] MEDS ORDERED: HYDROcodone/APAP 5-325MG 1 EACH TAB PO PRN (19:09)
--- NOTE | 2019-11-21 19:48 | XR ---
EXAMINATION TYPE: XR elbow complete LT DATE OF EXAM: 11/21/2019 COMPARISON: NONE HISTORY: Pain TECHNIQUE: 3 views FINDINGS: There is some spurring on the olecranon process of the ulna. There is soft tissue swelling over the proximal ulna. I see no fracture nor dislocation. There is no sign of elbow joint effusion. Joint spaces are normal. IMPRESSION: Posterior soft tissue swelling. No fracture seen.
[2019-11-21 20:23] LABS: Glucose,Whole Blood 120 mg/dL (75-99)
--- NOTE | 2019-11-21 20:37 | P.HPIM ---
History of Present Illness This is a pleasant 59 years old female with past medical history of diabetes mellitus, hypertension, hyperlipidemia, GERD., Chronic back pain with sciatic nerve pain, bipolar. Present because of syncope. Patient felt the urge to urinate and have a bowel movement so she got up and she felt lightheaded and dizzy and on the way to the bathroom she fell on the floor for 1 or 2 minutes, she woke up after 1 minutes and she was fully oriented. Family at bedside told she had difficulty getting herself but no urine or bit her tongue. Treatment of the floor for about 15 minutes she felt like sluggish. She is having signs symptoms of sinusitis associated with diarrhea about 3 times per day for the last 2 days on and off. Also she has hypertension and a problem and she seen a urologist Dr. Ramirez instructed sure however it felt like her frequent urination increased for the last 2 days No chest pain or dyspnea. Vital signs stable. Labs including CBC, BMP, liver enzymes are unremarkable. Troponin less than 0.012, urinalysis suspicious for infection She has CT of the chest with no contrast showing no acute posttraumatic changes. Chest x-ray showing normal chest by radiologist EKG showing normal sinus rhythm with first-degree block at 79 BPM, no significant ST-T changes and QTC is 470 D-dimer is negative at 0.54 In the emergency room she was started on normal sling at 1 30 mL/h. Creatinine is elevated at 1.22, baseline 0.4 Review of Systems CONSTITUTIONAL: No fever, no malaise, no fatigue. HEENT: No recent visual problems or hearing problems. Denied any sore throat. CARDIOVASCULAR: No orthopnea, PND, no palpitations, no syncope. PULMONARY: No shortness of breath, no cough, no hemoptysis. GASTROINTESTINAL: No diarrhea, no nausea, no vomiting, no abdominal pain. Normoactive bowel sounds. NEUROLOGICAL: No headaches, no weakness, no numbness. HEMATOLOGICAL: Denies any bleeding or petechiae. GENITOURINARY: Denies any burning micturition, frequency, or urgency. MUSCULOSKELETAL/RHEUMATOLOGICAL: Denies any joint pain, swelling, or any muscle pain. ENDOCRINE: Denies any polyuria or polydipsia. Past Medical History Past Medical History: Cancer, Diabetes Mellitus, GERD/Reflux, Hyperlipidemia, Hypertension, Skin Disorder Additional Past Medical History / Comment(s): FATTY LIVER, DOES'NT USE CPAP MACHINE. PAST MELANOMA ON BACK OF LT SHOULDER, HIATAL HERNIA, ANX.DEPRESSION, BIPOLAR, BROKE RT FOOT 2014, CHRONIC BACK PAIN SCIATIC NERVE PAIN DOES DOWN RT BUTTOCK/LEG, "SEASONAL ASTHMA"/BRONCHITS History of Any Multi-Drug Resistant Organisms: None Reported Past Surgical History: Hysterectomy, Tonsillectomy Additional Past Surgical History / Comment(s): foot, tendon repair, melanoma removal Past Anesthesia/Blood Transfusion Reactions: No Reported Reaction Past Psychological History: Anxiety, Bipolar, Depression Smoking Status: Never smoker Past Alcohol Use History: Occasional Past Drug Use History: None Reported - Past Family History Father Family Medical History: Cancer Additional Family Medical History / Comment(s): at age 64 from lung cancer w/mets to brain Mother Family Medical History: Hypertension, Renal Disease Medications and Allergies Home Medications Medication Instructions Recorded Confirmed Type Atenolol [Tenormin] 25 mg PO DAILY 12/05/16 11/21/19 History QUEtiapine [SEROquel] 100 mg PO HS 12/05/16 11/21/19 History Zolpidem [Ambien] 10 mg PO HS PRN 12/05/16 11/21/19 History clonazePAM [KlonoPIN] 0.5 mg PO DAILY 12/05/16 11/21/19 History Dextroamphetamine/Amphetamine 30 mg PO DAILY 11/21/19 11/21/19 History [Dextroamp-Amphetamin 30 mg Tab] Dicyclomine HCl 20 mg PO QID PRN 11/21/19 11/21/19 History Exenatide [Byetta] 5 mcg SQ BID 11/21/19 11/21/19 History Gabapentin [Neurontin] 300 mg PO BID 11/21/19 11/21/19 History QUEtiapine FUMARATE [QUEtiapine 300 mg PO HS 11/21/19 11/21/19 History FUMARATE ER] Vilazodone HCl [Viibryd] 40 mg PO DAILY 11/21/19 11/21/19 History metFORMIN HCL 1,000 mg PO BID 11/21/19 11/21/19 History Allergies Allergy/AdvReac Type Severity Reaction Status Date / Time aminophylline Allergy Rash/Hives Verified 11/21/19 08:52 levofloxacin [From Levaquin] Allergy Rash/Hives Verified 07/04/20 08:52 phenobarbital Allergy Rash/Hives Verified 11/21/19 08:52 Physical Exam Vitals: Vital Signs Temp Pulse Pulse Resp BP BP Pulse Ox 11/21/19 12:00 98.2 F 75 16 152/75 100 11/21/19 08:00 18 11/21/19 06:57 98 F 72 18 132/71 95 11/21/19 05:59 97.4 F L 66 18 137/77 95 11/21/19 05:00 66 18 114/61 96 11/21/19 03:17 97 F L 69 18 96/52 96 Intake and Output 11/21/19 11/21/19 11/21/19 06:59 14:59 22:59 Intake Total 236 Balance 236 Intake: Oral 236 Other: # Voids 1 Weight 136.078 kg -GENERAL: The patient is alert and oriented x3, not in any acute distress. Obese HEENT: Pupils are round and equally reacting to light. EOMI. No scleral icterus. No conjunctival pallor. Normocephalic, atraumatic. No pharyngeal erythema. No thyromegaly. CARDIOVASCULAR: S1 and S2 present. No murmurs, rubs, or gallops. PULMONARY: Chest is clear to auscultation, no wheezing or crackles. ABDOMEN: Soft, nontender, nondistended, normoactive bowel sounds. No palpable organomegaly. MUSCULOSKELETAL: No joint swelling or deformity. -EXTREMITIES: No cyanosis, clubbing, or pedal edema. left elbow wound NEUROLOGICAL: Gross neurological examination did not reveal any focal deficits. SKIN: No rashes. No petechiae Results CBC & Chem 7: 11/21/19 03:48 11/21/19 03:48 Labs: Abnormal Lab Results - Last 24 Hours (Table) 11/21/19 11/21/19 Range/Units 03:48 05:00 Creatinine 1.22 H (0.52-1.04) mg/dL Glucose 165 H (74-99) mg/dL Total Protein 5.8 L (6.3-8.2) g/dL Urine Appearance Cloudy H (Clear) Urine Protein 2+ H (Negative) Urine Ketones Trace H (Negative) Ur Leukocyte Esterase Small H (Negative) Urine WBC 6 H (0-5) /hpf Ur Squamous Epith Cells 13 H (0-4) /hpf Hyaline Casts 115 H (0-2) /lpf Urine Mucus Few H (None) /hpf Thrombosis Risk Factor Assmnt - Choose All That Apply Any of the Below Risk Factors Present?: Yes Each Factor Represents 1 point: Obesity (BMI >25) Other Risk Factors: Yes Each Risk Factor Represents 2 Points: Age 61-74 years Other congenital or acquired thrombophilia - If yes, enter type in comment: No Thrombosis Risk Factor Assessment Total Risk Factor Score: 3 Thrombosis Risk Factor Assessment Level: Moderate Risk Assessment and Plan Assessment: Syncope acute kidney injury Possible acute urinary tract infection Diarrhea, mostly reactive. Diabetes mellitus Hypertension Hyperlipidemia GERD Chronic back pain with sciatic nerve pain Bipolar disorder, no connective tissue Plan: This is a pleasant 59 years old female who presents with syncope, MATT and possible UTI. Continue with hydration. Send urine culture and start patient on ceftriaxone. Check procalcitonin. Monitor creatinine ,check bladder scan, check orthostasis, cardiology consuly Labs and medication were reviewed.. Continue same treatment. Continue with symptomatic treatment. Resume home medication. Monitor lytes and vitals. DVT and GI prophylaxis. Further recommendations of the clinical course of the patient plan discussed with pt and she agrees DVT prophylaxis: Subcutaneous heparin GI Prophylaxis: Pepcid
[2019-11-21] MEDS ORDERED: QUEtiapine 100 MG TAB PO SCH ×2 (21:00)
[2019-11-21] MEDS ORDERED: QUETIAPINE 300 MG PO SCH (21:00)
[2019-11-21] MEDS: GABAPENTIN 300 MG CAP PO SCH (21:25)
[2019-11-21] MEDS: HEPARIN SODIUM,PORCINE 5,000 UNIT/ML 1 ML VIAL SQ SCH (21:25)
[2019-11-21] MEDS: FAMOTIDINE 20 MG/2 ML VIAL IV SCH (21:25)
[2019-11-22 06:31] LABS: Glucose,Whole Blood 123 mg/dL (75-99)
[2019-11-22 08:06] VITALS: RESP 16; TEMP 97.9
[2019-11-22] MEDS: INSULIN ASPART (NovoLOG) 100 UNIT/ML VIAL SQ SCH ×2 (08:17→12:04)
[2019-11-22 08:54] LABS: African American GFR (CKD) >90 (>60 ml/min/1.73 sqM); Anion Gap 3 mmol/L; Blood Urea Nitrogen 9 mg/dL (7-17); Calcium 8.6 mg/dL (8.4-10.2); Carbon Dioxide 27 mmol/L (22-30); Chloride 107 mmol/L (98-107); Glucose 130 mg/dL (74-99); Magnesium 1.7 mg/dL (1.6-2.3); Non-African American GFR(CKD) >90 (>60 ml/min/1.73 sqM); Potassium 4.5 mmol/L (3.5-5.1); Sodium 137 mmol/L (137-145)
[2019-11-22] MEDS ORDERED: VILAZODONE HCL 40 MG PO SCH (09:00)
[2019-11-22] MEDS ORDERED: ATENOLOL 25 MG TAB PO SCH (09:00)
[2019-11-22] MEDS ORDERED: clonazePAM 0.5 MG TAB PO SCH (09:00)
[2019-11-22] MEDS ORDERED: QUEtiapine 50 MG TAB PO SCH (09:00)
[2019-11-22] MEDS: GABAPENTIN 300 MG CAP PO SCH (09:09)
[2019-11-22] MEDS: HEPARIN SODIUM,PORCINE 5,000 UNIT/ML 1 ML VIAL SQ SCH (09:09)
[2019-11-22] MEDS: FAMOTIDINE 20 MG/2 ML VIAL IV SCH (09:09)
[2019-11-22] MEDS: SODIUM CHLORIDE 0.9% 1,000 ML IV SCH (10:42)
[2019-11-22 11:30] LABS: Glucose,Whole Blood 121 mg/dL (75-99)
[2019-11-22] MEDS ORDERED: LORATADINE 10 MG TAB PO SCH (11:45)
--- NOTE | 2019-11-22 11:48 | P.DS ---
Providers Date of admission: 11/21/19 05:38 Attending physician: Sindy Solorzano Consults: 11/21/19 20:06 Consult Physician Routine Consulting Provider: Linette Miranda Consult Reason/Comments: syncope Do you want consulting provider notified?: Yes Primary care physician: Kristie Villasenor Hospital Course: Diagnoses: Syncope , positive apical acute kidney injury. Back to normal Sinusitis Possible acute urinary tract infection Diarrhea, mostly reactive. No bowel movement since yesterday Diabetes mellitus Hypertension Hyperlipidemia GERD Chronic back pain with sciatic nerve pain Bipolar disorder, no connective tissue Hospital course: This is a pleasant 59 years old female with past medical history of diabetes mellitus, hypertension, hyperlipidemia, GERD., Chronic back pain with sciatic nerve pain, bipolar. Present because of syncope. She has history of urinary bladder disease. She follows up with urologist as an outpatient, prior to admission Patient felt the urge to urinate and have a bowel movement so she got up and she felt lightheaded and dizzy and on the way to the bathroom she fell on the floor for 1 or 2 minutes, she woke up after 1 minutes and she was fully oriented. No seizure-like activity. Paper Maker evaluated the patient and found her to have vasovacal syncope She was treated with IV hydration and her creatinine came back from 1.2 down to 0.6 Patient symptoms improved, the day of discharge she denies dysuria, she did not have bowel movements since yesterday. No abdominal pain, no chest pain or dyspnea. She still complained from sinusitis symptoms and Claritin has been added Patient was cleared for discharge by cardiology Problems and management plan were discussed with the patient and he verbalized understanding and acceptance Patient was found stable and can be discharged home however he needs follow-up as an outpatient. Patient was instructed to follow up with PCP Dr. Brice within one week and patient agrees. Also patient was instructed to follow up with her ramp agent within 2 weeks, she states she already has an appointment on 12/09 and she is going to follow up Gen: patient is a AAOx3, no distress CVS: S1-S2, RRR, no murmur Lungs: B/L CTA, no wheezing Abdomen: soft, no distention, no tenderness, positive bowel sounds Extremity: no leg edema or induration Time spent more than 35 minutes Patient Condition at Discharge: Stable Plan - Discharge Summary Discharge Rx Participant: No New Discharge Prescriptions: No Action clonazePAM [KlonoPIN] 0.5 mg PO DAILY Atenolol [Tenormin] 25 mg PO DAILY QUEtiapine [SEROquel] 100 mg PO HS Zolpidem [Ambien] 10 mg PO HS PRN PRN Reason: Insomnia Vilazodone HCl [Viibryd] 40 mg PO DAILY metFORMIN HCL 1,000 mg PO BID QUEtiapine FUMARATE [QUEtiapine FUMARATE ER] 300 mg PO HS Gabapentin [Neurontin] 300 mg PO BID Dicyclomine HCl 20 mg PO QID PRN PRN Reason: Gi Upset Dextroamphetamine/Amphetamine [Dextroamp-Amphetamin 30 mg Tab] 30 mg PO DAILY Exenatide [Byetta] 5 mcg SQ BID Discharge Medication List Atenolol [Tenormin] 25 mg PO DAILY 12/05/16 [History] QUEtiapine [SEROquel] 100 mg PO HS 12/05/16 [History] Zolpidem [Ambien] 10 mg PO HS PRN 12/05/16 [History] clonazePAM [KlonoPIN] 0.5 mg PO DAILY 12/05/16 [History] Dextroamphetamine/Amphetamine [Dextroamp-Amphetamin 30 mg Tab] 30 mg PO DAILY 11/21/19 [History] Dicyclomine HCl 20 mg PO QID PRN 11/21/19 [History] Exenatide [Byetta] 5 mcg SQ BID 11/21/19 [History] Gabapentin [Neurontin] 300 mg PO BID 11/21/19 [History] QUEtiapine FUMARATE [QUEtiapine FUMARATE ER] 300 mg PO HS 11/21/19 [History] Vilazodone HCl [Viibryd] 40 mg PO DAILY 11/21/19 [History] metFORMIN HCL 1,000 mg PO BID 11/21/19 [History] Follow up Appointment(s)/Referral(s): Kristie Villasenor MD [Primary Care Provider] - 1-2 days
[2019-11-22 12:02] VITALS: BP 148/94; PULSE 95
--- NOTE | 2019-11-22 12:08 | P.CRDCN ---
History of Present Illness Consult date: 11/22/19 Reason for Consult (text): Syncope Chief complaint: Syncope History of present illness: HISTORY OF PRESENT ILLNESS AND PLAN: This is a 59-year-old femle with history of obesity, bipolar disorder, IBS diabetes, hypertension, hyperlipidemia, GERD and recent syncopal episode. Patient states on November 20 she was sitting at home on her couch had an urgent need to have a bowel movement along with nausea, got up to use the restroom and on her way had a syncopal episode. Patient states she has had a similar syncopal episode within the past 5-10 years. Patient states she was out late the prior Saturday evening night in the heat working in her yard and may have been dehydrated at the time. Patient follows with PCP Kristie Villasenor and cardiology Dr. Guzman in [place]. Patient states she had recent echocardiogram and Holter monitor in September 2019 at PCP that was within normal limits. Patient also had recent stress echo and 30 day event monitor in September [address] Guzman/cardiology that was also within normal limits. Patient is sinus rhythm first degree block on EKG, heart rate 79. Vital signs stable. Patient is mildly tachycardic at 103-113 occasionally on monitors. 96% on room air. Troponins negative 2. Patient being given IV antibiotics for borderline UA. Labs within normal limits except for magnesium which is low at 1.7, wall supplement orally. D-dimer 0.54, CT of chest WNL. Orthostatics completed in emergency room within normal limits. Patient does have a history of bipolar disorder. Seems to be a good historian. Has no current c/o of chest pain, chest pressure, shortness of breath or palpitations. No current dizziness or lightheadedness. States she recently had her hydrochlorothiazide and atenolol adjusted by her milk collector. Patient also states she had about of IBS/diarrhea in the past 2 days prior to her syncopal episode. SIGNIFICANT PAST MEDICAL HISTORY: obesity, bipolar disorder, IBS diabetes, hypertension, hyperlipidemia, GERD and recent syncopal episode. PAST SURGICAL HISTORY: See list. EKG = SR 1st degree block, HR 79 Troponins negative x 2 SIGNIFICANT LABORATORY VALUES: HGB 12.9, HCT 40.3. K 4.5, NA 137, CL 107. BUN 9, CR 0.61. Borderline U/A. D-dimer 0.54. Mag low at 1.7. Chest x-ray 11/21/2019 = No acute process CT of chest 11/21/2019 = No acute process Most recent echo = per pt WNL Most recent stress testing = per pt WNL REVIEW OF SYSTEMS: CONSTITUTIONAL: Denies fever. Denies chills. Syncopal episode, now no symptoms. EYES: Denies blurred vision. Denies blurred vision or vision changes. Denies eye pain. EARS, NOSE, MOUTH & THROAT: Denies headache. Denies sore throat. Denies ear pain Denies hemoptysis. CARDIOVASCULAR: Denies chest pain. Denies shortness of breath. Denies orthopnea. Denies PND. Denies palpitations. RESPIRATORY: Denies cough. Denies shortness of breath. GASTROINTESTINAL: Denies abdominal pain or distention. Denies diarrhea. Denies constipation. Denies nausea. Denies vomiting. MUSCULOSKELETAL: Denies myalgias. INTEGUMENTARY: Denies pruitis. Denies rash. ENDOCRINE: Denies fatigue. Denies weight change. Denies polydipsia. Denies polyurina Denies heat/cold intolerance. GENITOURINARY: Denies burning, hematuria or urgency with micturation. HEMATOLOGIC: Denies history of anemia. Denies bleeding. NEUROLOGIC: Denies numbness. Denies tingling. Denies weakness. PSYCHIATRIC: Denies anxiety. Denies depression. PHYSICAL EXAM: GENERAL: Well developed, in no acute distress. HEENT: Head is atraumatic, normocephalic. Pupils are equal, round. Extra ocular movements intact. Mucous membranes moist. Neck supple. No JVD. No carotid bruit. No thyromegaly. LUNGS: Clear to auscultation. No wheezes, rales or rhonchi. No chest wall tenderness on palpation or with deep breathing. HEART: Regular rate and rhythm, no rubs or gallops. S1 and S2 heard. No murmur. ABDOMEN: Abdominal exam, WNL. Bowel sounds x4 quads. Soft, non-tender, without masses, organomegaly, or abdominal aorta enlargement. EXTREMITIES/VASCULAR: Extremities have easily palpable radial, femoral, dorsalis pedis and posterior tibial pulses. No cyanosis, calf tenderness. No BLE edema. NEUROLOGIC: Patient is awake, alert and oriented x3. No focal neurologic abnormalities. FINAL IMPRESSION: 1. Vasovagal syncope 2. Dehydration, 150 ml bolus over 2 hours given 3. Hypomagnesium, will replace orally 4. IBS with diarrhea 5. Bipolar disorder PLAN: Will replace hydration with 0.9 NS IV fluids 150 cc x 2 hours, then 75 ml per hour. Replace magnesium orally, 400 mg twice daily. Continue same all other medical/medication regime. Heart healthy diet. Encourage hydration and good electrolyte food consumption. OK for discharge from a cardiology perspective. Pt to follow-up with known milk collector. Outpatient carotid US advised. Nurse Practitioner note has been reviewed by the Physician. Signing provider agrees with the documented findings, assessment and plan of care. Past Medical History Past Medical History: Cancer, Diabetes Mellitus, GERD/Reflux, Hyperlipidemia, Hypertension, Skin Disorder Additional Past Medical History / Comment(s): FATTY LIVER, DOES'NT USE CPAP MACHINE. PAST MELANOMA ON BACK OF LT SHOULDER, HIATAL HERNIA, ANX.DEPRESSION, BIPOLAR, BROKE RT FOOT 2013, CHRONIC BACK PAIN SCIATIC NERVE PAIN DOES DOWN RT BUTTOCK/LEG, "SEASONAL ASTHMA"/BRONCHITS History of Any Multi-Drug Resistant Organisms: None Reported Past Surgical History: Hysterectomy, Tonsillectomy Additional Past Surgical History / Comment(s): foot, tendon repair, melanoma removal Past Anesthesia/Blood Transfusion Reactions: No Reported Reaction Past Psychological History: Anxiety, Bipolar, Depression Smoking Status: Never smoker Past Alcohol Use History: Occasional Past Drug Use History: None Reported - Past Family History Father Family Medical History: Cancer Additional Family Medical History / Comment(s): at age 64 from lung cancer w/mets to brain Mother Family Medical History: Hypertension, Renal Disease Medications and Allergies Home Medications Medication Instructions Recorded Confirmed Type Atenolol [Tenormin] 25 mg PO DAILY 12/05/16 11/21/19 History QUEtiapine [SEROquel] 100 mg PO HS 12/05/16 11/21/19 History Zolpidem [Ambien] 10 mg PO HS PRN 12/05/16 11/21/19 History clonazePAM [KlonoPIN] 0.5 mg PO DAILY 12/05/16 11/21/19 History Dextroamphetamine/Amphetamine 30 mg PO DAILY 11/21/19 11/21/19 History [Dextroamp-Amphetamin 30 mg Tab] Dicyclomine HCl 20 mg PO QID PRN 11/21/19 11/21/19 History Exenatide [Byetta] 5 mcg SQ BID 11/21/19 11/21/19 History Gabapentin [Neurontin] 300 mg PO BID 11/21/19 11/21/19 History QUEtiapine FUMARATE [QUEtiapine 300 mg PO HS 11/21/19 11/21/19 History FUMARATE ER] Vilazodone HCl [Viibryd] 40 mg PO DAILY 11/21/19 11/21/19 History metFORMIN HCL 1,000 mg PO BID 11/21/19 11/21/19 History Allergies Allergy/AdvReac Type Severity Reaction Status Date / Time aminophylline Allergy Rash/Hives Verified 11/21/19 08:52 levofloxacin [From Levaquin] Allergy Rash/Hives Verified 11/21/19 08:52 phenobarbital Allergy Rash/Hives Verified 11/21/19 08:52 Physical Exam Vitals: Vital Signs Temp Pulse Pulse Pulse Pulse Resp BP 11/22/19 08:00 97.9 F 90 16 11/22/19 04:00 97.4 F L 103 H 19 11/22/19 00:00 98.1 F 66 18 11/21/19 20:42 73 89 73 11/21/19 20:00 98.1 F 73 17 11/21/19 16:00 98.1 F 100 16 147/68 11/21/19 12:00 98.2 F 75 16 152/75 BP BP BP BP Pulse Ox 11/22/19 08:00 125/67 96 11/22/19 04:00 160/90 11/22/19 00:00 144/83 96 11/21/19 20:42 162/90 167/103 183/116 11/21/19 20:00 144/83 96 11/21/19 16:00 100 11/21/19 12:00 100 Intake and Output 11/21/19 11/22/19 11/22/19 22:59 06:59 14:59 Intake Total 522 300 Balance 522 300 Intake: Oral 522 300 Other: Voiding Method Toilet Toilet # Voids 1 1 3 Results 11/21/19 03:48 11/22/19 08:15 Cardiac Enzymes 11/22/19 Range/Units 08:15 Troponin I <0.012 (0.000-0.034) ng/mL Comprehensive Metabolic Panel 11/22/19 Range/Units 08:15 Sodium 137 (137-145) mmol/L Potassium 4.5 (3.5-5.1) mmol/L Chloride 107 (98-107) mmol/L Carbon Dioxide 27 (22-30) mmol/L BUN 9 (7-17) mg/dL Creatinine 0.61 (0.52-1.04) mg/dL Glucose 130 H (74-99) mg/dL Calcium 8.6 (8.4-10.2) mg/dL Current Medications Generic Name Dose Route Start Last Admin Trade Name Freq PRN Reason Stop Dose Admin Acetaminophen 650 mg 11/21/19 05:37 Tylenol Tab PO Q6HR PRN Mild Pain or Fever > 100.5 Hydrocodone Bitart/Acetaminophen 1 each 11/21/19 19:09 [place] 5-325 PO Q6HR PRN Pain Atenolol 25 mg 11/22/19 09:00 11/22/19 09:09 Tenormin PO 25 mg DAILY LION Administration Clonazepam 0.5 mg 11/22/19 09:00 11/22/19 10:42 Klonopin PO 0.5 mg DAILY LION Administration Dicyclomine HCl 20 mg 11/21/19 16:17 Bentyl PO QID PRN GI Upset Famotidine 20 mg 11/21/19 21:00 11/22/19 09:09 Pepcid IV 20 mg Q12HR LION Administration Gabapentin 300 mg 11/21/19 21:00 11/22/19 09:09 Neurontin PO 300 mg BID LION Administration Heparin Sodium (Porcine) 5,000 unit 11/21/19 21:00 11/22/19 09:09 Heparin SQ 5,000 unit Q12HR LION Administration Hydromorphone HCl 0.5 mg 11/21/19 19:09 11/22/19 04:57 Dilaudid IVP 0.5 mg Q3HR PRN Administration Pain Sodium Chloride 1,000 mls @ 150 mls/hr 11/21/19 05:30 11/22/19 10:42 Saline 0.9% IV 150 mls/hr .Q6H40M LION Administration Ceftriaxone Sodium 1 gm/ 50 mls @ 100 mls/hr 11/21/19 15:30 11/22/19 09:08 Sodium Chloride IVPB 100 mls/hr Q24HR LION Administration Insulin Aspart 0 unit 11/21/19 17:30 11/22/19 08:17 Novolog SQ Not Given ACHS [facility] Protocol Loratadine 10 mg 11/22/19 11:45 Claritin PO DAILY LION Naloxone HCl 0.2 mg 11/21/19 05:37 Narcan IV Q2M PRN Opioid Reversal Dextroamphetamine/ 30 mg 11/22/19 09:00 11/22/19 10:41 Amphetamine 30 Mg PO Not Given Tab QAM LION Vilazodone Hcl [ 40 mg 11/22/19 09:00 11/22/19 10:41 Viibryd] 40 Mg Tab PO Not Given DAILY LION Quetiapine (Seroquel 1 each 11/21/19 21:00 11/21/19 22:01 ) Er 300mg Tab PO 1 each HS LION Administration Ondansetron HCl 4 mg 11/21/19 05:37 Zofran IVP Q8HR PRN Nausea And Vomiting Quetiapine Fumarate 100 mg 11/21/19 21:00 11/21/19 21:51 Seroquel PO 100 mg HS LION Administration Zolpidem Tartrate 5 mg 11/21/19 16:21 11/21/19 21:42 Ambien PO 5 mg HS PRN Administration insomnia Intake and Output 11/21/19 11/22/19 11/22/19 22:59 06:59 14:59 Intake Total 522 300 Balance 522 300 Intake: Oral 522 300 Other: Voiding Method Toilet Toilet # Voids 1 1 3 11/21/19 03:48 11/22/19 08:15 - EKG Interpretation EKG: sinus rhythm
[2019-11-22] MEDS ORDERED: MAGNESIUM OXIDE 400 MG TAB PO SCH (12:15)
== END 2019-11-22 13:29 | disposition home or self-care (01) ==
LOC: EC 03:12 → 1SOBS 05:38
PROVIDERS: ADMIT Hospitalist; ATTEND Hospitalist
DX: R55 Syncope and collapse (principal); N17.9 Acute kidney failure, unspecified; J32.9 Chronic sinusitis, unspecified; R19.7 Diarrhea, unspecified; S09.90XA Unspecified injury of head, initial encounter; I10 Essential (primary) hypertension; E78.5 Hyperlipidemia, unspecified; K21.9 Gastro-esophageal reflux disease without esophagitis; G89.29 Other chronic pain; M54.9 Dorsalgia, unspecified; M54.31 Sciatica, right side; F31.9 Bipolar disorder, unspecified; I95.9 Hypotension, unspecified; I44.0 Atrioventricular block, first degree; R94.31 Abnormal electrocardiogram [ECG] [EKG]; R07.89 Other chest pain; E66.01 Morbid (severe) obesity due to excess calories; E73.9 Lactose intolerance, unspecified; E11.9 Type 2 diabetes mellitus without complications; K76.0 Fatty (change of) liver, not elsewhere classified; K44.9 Diaphragmatic hernia without obstruction or gangrene; F41.9 Anxiety disorder, unspecified; R00.0 Tachycardia, unspecified; E86.0 Dehydration; E83.42 Hypomagnesemia; K58.0 Irritable bowel syndrome with diarrhea; Z03.818 Encounter for observation for suspected exposure to other biological agents ruled out; Z68.41 Body mass index [BMI] 40.0-44.9, adult; Z79.899 Other long term (current) drug therapy; Z79.84 Long term (current) use of oral hypoglycemic drugs; Z88.8 Allergy status to other drugs, medicaments and biological substances; Z88.1 Allergy status to other antibiotic agents; Z85.820 Personal history of malignant melanoma of skin; Z87.2 Personal history of diseases of the skin and subcutaneous tissue; Z87.81 Personal history of (healed) traumatic fracture; Z87.09 Personal history of other diseases of the respiratory system; Z90.710 Acquired absence of both cervix and uterus; Z90.89 Acquired absence of other organs; Z98.890 Other specified postprocedural states; Z91.81 History of falling; Z80.1 Family history of malignant neoplasm of trachea, bronchus and lung; Z80.8 Family history of malignant neoplasm of other organs or systems; Z82.49 Family history of ischemic heart disease and other diseases of the circulatory system; Z84.1 Family history of disorders of kidney and ureter; W18.39XA Other fall on same level, initial encounter
CPT/HCPCS: 96361 ×3; 96365; 96366; 96372 ×2; 96375 ×3; 96376; 99285; 36415; 93005; 85379; 80053; 80048; 83735; 84484 ×2; 85025; 85610; 85730; 81001; 87086; 84145; 73080; 71046; 71250; G0378 ×2; U0003; J2270; J1644 ×2; J0696 ×2; J1170

== ENCOUNTER 2020-12-16 05:30 | Observation (INO) | payer BC ==
[2020-12-16] MEDS ORDERED: HYDROmorphone 1 MG/ML 1 ML SYRINGE IVP STA ×2 (05:35→06:51)
--- NOTE | 2020-12-16 05:49 | ED ---
Abdominal Pain HPI - General Chief Complaint: Abdominal Pain Stated Complaint: kidney pain, nausea Time Seen by Provider: 12/16/20 05:33 Source: patient, RN notes reviewed, old records reviewed Mode of arrival: EMS Limitations: no limitations - History of Present Illness Initial Comments: This is a 58-year-old female DF for evaluation of chronic pain. Patient chronic right-sided flank pain back pain now with left-sided pain. Patient has nausea without vomiting, can't currently get comfortable secondary to severity of pain. No fevers no shortness of breath no cough. No chest pain. No issues of bowel or bladder movements. Patient does have history of same although this appears to be worse MD Complaint: abdominal pain, flank pain (Left) Location: LLQ, L flank Radiation: L flank Migration to: L flank Severity scale (1-10): 7 Quality: stabbing Consistency: constant Improves With: nothing Worsens With: nothing Associated Symptoms: nausea, vomiting - Related Data Home Medications Medication Instructions Recorded Confirmed QUEtiapine [SEROquel] 100 mg PO HS 12/05/16 12/16/20 Zolpidem [Ambien] 10 mg PO HS 12/05/16 12/16/20 atenoloL [Tenormin] 25 mg PO DAILY 12/05/16 12/16/20 clonazePAM [KlonoPIN] 0.5 mg PO HS 12/05/16 12/16/20 Exenatide [Byetta] 5 mcg SQ BID 11/21/19 12/16/20 Gabapentin [Neurontin] 300 mg PO BID 11/21/19 12/16/20 Vilazodone HCl [Viibryd] 40 mg PO DAILY 11/21/19 12/16/20 metFORMIN HCL [Glucophage] 1,000 mg PO BID 11/21/19 12/16/20 Dextroamphetamine/Amphetamine 40 mg PO QAM 12/16/20 12/16/20 [Adderall Xr] QUEtiapine FUMARATE [SEROquel XR] 400 mg PO HS 12/16/20 12/16/20 QUEtiapine [SEROquel] 50 mg PO QAM 12/16/20 12/16/20 clonazePAM [KlonoPIN] 0.5 mg PO DAILY PRN 12/16/20 12/16/20 Allergies Allergy/AdvReac Type Severity Reaction Status Date / Time aminophylline Allergy Rash/Hives Verified 12/16/20 07:50 levofloxacin [From Levaquin] Allergy Rash/Hives Verified 12/16/20 07:50 phenobarbital Allergy Rash/Hives Verified 12/16/20 07:50 duloxetine [From Cymbalta] AdvReac muscle pain Verified 12/16/20 07:50 Review of Systems ROS Statement: Those systems with pertinent positive or pertinent negative responses have been documented in the HPI. ROS Other: All systems not noted in ROS Statement are negative. Past Medical History Past Medical History: Cancer, Diabetes Mellitus, GERD/Reflux, Hyperlipidemia, Hypertension, Skin Disorder Additional Past Medical History / Comment(s): FATTY LIVER, DOES'NT USE CPAP MACHINE. PAST MELANOMA ON BACK OF LT SHOULDER, HIATAL HERNIA, ANX.DEPRESSION, BIPOLAR, BROKE RT FOOT 2013, CHRONIC BACK PAIN SCIATIC NERVE PAIN DOES DOWN RT BUTTOCK/LEG, "SEASONAL ASTHMA"/BRONCHITS History of Any Multi-Drug Resistant Organisms: None Reported Past Surgical History: Hysterectomy, Tonsillectomy Additional Past Surgical History / Comment(s): foot, tendon repair, melanoma removal Past Anesthesia/Blood Transfusion Reactions: No Reported Reaction Past Psychological History: Anxiety, Bipolar, Depression Past Alcohol Use History: Occasional Past Drug Use History: None Reported - Past Family History Father Family Medical History: Cancer Additional Family Medical History / Comment(s): at age 64 from lung cancer w/mets to brain Mother Family Medical History: Hypertension, Renal Disease General Exam Limitations: no limitations General appearance: alert, in no apparent distress Head exam: Present: atraumatic, normocephalic, normal inspection Eye exam: Present: normal appearance, PERRL, EOMI. Absent: scleral icterus, conjunctival injection, periorbital swelling ENT exam: Present: normal exam, mucous membranes moist Neck exam: Present: normal inspection. Absent: tenderness, meningismus, lymphadenopathy Respiratory exam: Present: normal lung sounds bilaterally. Absent: respiratory distress, wheezes, rales, rhonchi, stridor Cardiovascular Exam: Present: regular rate, normal rhythm, normal heart sounds. Absent: systolic murmur, diastolic murmur, rubs, gallop, clicks GI/Abdominal exam: Present: soft, normal bowel sounds. Absent: distended, tenderness, guarding, rebound, rigid Extremities exam: Present: normal inspection, full ROM, normal capillary refill. Absent: tenderness, pedal edema, joint swelling, calf tenderness Back exam: Present: normal inspection Neurological exam: Present: alert, oriented X3, CN II-XII intact Psychiatric exam: Present: normal affect, normal mood Skin exam: Present: warm, dry, intact, normal color. Absent: rash Course Vital Signs 12/16/20 12/16/20 05:31 06:59 Temperature 98.1 F Pulse Rate 74 64 Respiratory 16 16 Rate Blood Pressure 171/81 138/69 O2 Sat by Pulse 100 99 Oximetry - Reevaluation(s) Reevaluation #1: 12/16/20 07:22 Medical record is reviewed Reevaluation #2: 12/16/20 07:22 Patient has unable to be controlled pain, will place on antibiotics and pain control admit for further evaluation and observation Medical Decision Making - Medical Decision Making 60 female to the ER for evaluation of left flank pain severe left flank pain throughout ER stay. Patient has no relief of pain, although imaging and urinalysis are negative. Patient be admitted for pain control does not fill comfortable with discharge is how severe her pain is - Lab Data Result diagrams: 12/16/20 05:40 12/16/20 05:40 Lab Results 12/16/20 12/16/20 12/16/20 Range/Units 05:40 05:40 06:24 WBC 8.4 (3.8-10.6) k/uL RBC 4.21 (3.80-5.40) m/uL Hgb 12.7 (11.4-16.0) gm/dL Hct 38.1 (34.0-46.0) % MCV 90.4 (80.0-100.0) fL MCH 30.1 (25.0-35.0) pg MCHC 33.3 (31.0-37.0) g/dL RDW 14.1 (11.5-15.5) % Plt Count 252 (150-450) k/uL MPV 7.6 Neutrophils % 50 % Lymphocytes % 38 % Monocytes % 5 % Eosinophils % 5 % Basophils % 1 % Neutrophils # 4.2 (1.3-7.7) k/uL Lymphocytes # 3.2 (1.0-4.8) k/uL Monocytes # 0.4 (0-1.0) k/uL Eosinophils # 0.4 (0-0.7) k/uL Basophils # 0.1 (0-0.2) k/uL Sodium 138 (137-145) mmol/L Potassium 4.1 (3.5-5.1) mmol/L Chloride 104 (98-107) mmol/L Carbon Dioxide 30 (22-30) mmol/L Anion Gap 4 mmol/L BUN 16 (7-17) mg/dL Creatinine 0.52 (0.52-1.04) mg/dL Est GFR (CKD-EPI)AfAm >90 (>60 ml/min/1.73 sqM) Est GFR (CKD-EPI)NonAf >90 (>60 ml/min/1.73 sqM) Glucose 139 H (74-99) mg/dL Calcium 9.3 (8.4-10.2) mg/dL Total Bilirubin 0.7 (0.2-1.3) mg/dL AST 25 (14-36) U/L ALT 29 (4-34) U/L Alkaline Phosphatase 86 (38-126) U/L Total Protein 5.9 L (6.3-8.2) g/dL Albumin 3.7 (3.5-5.0) g/dL Amylase 89 (30-110) U/L Lipase 288 (23-300) U/L Urine Color Yellow Urine Appearance Cloudy H (Clear) Urine pH 5.0 (5.0-8.0) Ur Specific [place] 1.036 H (1.001-1.035) Urine Protein 1+ H (Negative) Urine Glucose (UA) Negative (Negative) Urine Ketones Negative (Negative) Urine Blood Negative (Negative) Urine Nitrite Negative (Negative) Urine Bilirubin Negative (Negative) Urine Urobilinogen <2.0 (<2.0) mg/dL Ur Leukocyte Esterase Negative (Negative) Urine RBC 2 (0-5) /hpf Urine WBC 5 (0-5) /hpf Ur Squamous Epith Cells 16 H (0-4) /hpf Calcium Oxalate Crystal Few H (None) /hpf Urine Mucus Rare H (None) /hpf - Radiology Data Radiology results: report reviewed (CT abdomen and pelvis is negative for acute disease, chest x-rays negative for acute disease), image reviewed Disposition Clinical Impression: Left flank pain, Intractable pain Disposition: ADMITTED IP TO THIS [facility] Condition: Good Is patient prescribed a controlled substance at d/c from ED?: No
[2020-12-16 06:05] LABS: ALT 29 U/L (4-34); AST 25 U/L (14-36); African American GFR (CKD) >90 (>60 ml/min/1.73 sqM); Albumin 3.7 g/dL (3.5-5.0); Alkaline Phosphatase 86 U/L (38-126); Amylase 89 U/L (30-110); Anion Gap 4 mmol/L; Blood Urea Nitrogen 16 mg/dL (7-17); Calcium 9.3 mg/dL (8.4-10.2); Carbon Dioxide 30 mmol/L (22-30); Chloride 104 mmol/L (98-107); Glucose 139 mg/dL (74-99); Lipase 288 U/L (23-300); Non-African American GFR(CKD) >90 (>60 ml/min/1.73 sqM); Potassium 4.1 mmol/L (3.5-5.1); Sodium 138 mmol/L (137-145); Total Bilirubin 0.7 mg/dL (0.2-1.3); Total Protein 5.9 g/dL (6.3-8.2)
[2020-12-16 06:06] LABS: Basophils # (A) 0.1 k/uL (0-0.2); Basophils % (A) 1 %; Eosinophils # (A) 0.4 k/uL (0-0.7); Eosinophils % (A) 5 %; HCT 38.1 % (34.0-46.0); HGB 12.7 gm/dL (11.4-16.0); Lymphocytes # (A) 3.2 k/uL (1.0-4.8); Lymphocytes % (A) 38 %; MCH 30.1 pg (25.0-35.0); MCHC 33.3 g/dL (31.0-37.0); MCV 90.4 fL (80.0-100.0); Mean Platelet Volume 7.6; Monocytes # (A) 0.4 k/uL (0-1.0); Monocytes % (A) 5 %; Neutrophils # (A) 4.2 k/uL (1.3-7.7); Neutrophils % (A) 50 %; Platelet Count 252 k/uL (150-450); RBC 4.21 m/uL (3.80-5.40); RDW 14.1 % (11.5-15.5); WBC 8.4 k/uL (3.8-10.6)
[2020-12-16 06:40] LABS: Appearance,Urine Cloudy (Clear); Bilirubin,Urine Negative (Negative); Blood,Urine Negative (Negative); Calcium Oxalate Crystals,Urine Few /hpf; Color,Urine Yellow; Glucose,Urine (UA) Negative (Negative); Ketones,Urine Negative (Negative); Leukocyte Esterase,Urine Negative (Negative); Mucus,Urine Rare /hpf; Nitrite,Urine Negative (Negative); Protein,Urine 1+ (Negative); RBC,Urine 2 /hpf (0-5); Specific Gravity,Urine 1.036 (1.001-1.035); Squamous Epithelial Cell,Urine 16 /hpf (0-4); Urobilinogen,Urine <2.0 mg/dL (<2.0); WBC,Urine 5 /hpf (0-5)
[2020-12-16] MEDS ORDERED: KETOROLAC 15 MG/ML 1 ML VIAL IVP STA (06:51)
--- NOTE | 2020-12-16 06:57 | CT ---
EXAM: CT Abdomen and Pelvis Without Intravenous Contrast CLINICAL HISTORY: ITS.REASON CT Reason: Pain TECHNIQUE: Axial computed tomography images of the abdomen and pelvis without intravenous contrast. CTDI is 2166 mGy and DLP is 37.5 mGy-cm. This CT exam was performed using one or more of the following dose reduction techniques: automated exposure control, adjustment of the mA and/or kV according to patient size, and/or use of iterative reconstruction technique. COMPARISON: No relevant prior studies available. FINDINGS: Lung bases: Unremarkable. No mass. No consolidation. ABDOMEN: Liver: Unremarkable. Gallbladder and bile ducts: Cholecystectomy. No ductal dilation. Pancreas: Unremarkable. No ductal dilation. Spleen: Unremarkable. No splenomegaly. Adrenals: Unremarkable. No mass. Kidneys and ureters: Unremarkable. No obstructing stones. No hydronephrosis. Stomach and bowel: Unremarkable. No obstruction. No mucosal thickening. PELVIS: Appendix: No findings to suggest acute appendicitis. Bladder: Unremarkable. No stones. Reproductive: Hysterectomy. ABDOMEN and PELVIS: Intraperitoneal space: Unremarkable. No free air. No significant fluid collection. Bones/joints: No acute fracture. No dislocation. Soft tissues: Unremarkable. Vasculature: Unremarkable. No abdominal aortic aneurysm. Lymph nodes: Unremarkable. No enlarged lymph nodes. IMPRESSION: No acute findings in the abdomen or pelvis.
[2020-12-16] MEDS ORDERED: NALOXONE 0.4 MG/ML 1 ML VIAL IV PRN (07:21)
[2020-12-16] MEDS: MORPHINE SULFATE 4 MG/ML SYRINGE IV PRN ×2 (10:44→15:08)
[2020-12-16] MEDS ORDERED: clonazePAM 0.5 MG TAB PO PRN (11:59)
[2020-12-16 15:01] LABS: Glucose,Whole Blood 126 mg/dL (75-99)
--- NOTE | 2020-12-16 17:00 | XR ---
EXAMINATION TYPE: XR chest 1V DATE OF EXAM: 12/16/2020 COMPARISON: 11/21/2019 HISTORY: Baseline TECHNIQUE: Single frontal view of the chest is obtained. FINDINGS: There is no focal air space opacity, pleural effusion, or pneumothorax seen. The cardiac silhouette size is within normal limits. The osseous structures are intact. IMPRESSION: No acute process.
[2020-12-16] MEDS: HEPARIN SODIUM,PORCINE/PF 5,000 UNIT/0.5 ML SYRINGE SQ SCH (17:39)
[2020-12-16] MEDS: SODIUM CHLORIDE 0.9% 1,000 ML IV SCH (17:40)
[2020-12-16] MEDS: ONDANSETRON 4 MG/2 ML VIAL IVP PRN (20:21)
[2020-12-16] MEDS: clonazePAM 0.5 MG TAB PO SCH (21:36)
[2020-12-16] MEDS: QUEtiapine 200 MG TAB PO SCH (21:37)
[2020-12-16] MEDS: GABAPENTIN 300 MG CAP PO SCH (21:37)
[2020-12-16] MEDS: QUEtiapine 100 MG TAB PO SCH (21:38)
[2020-12-16] MEDS: metFORMIN 500 MG TAB PO SCH (21:38)
[2020-12-16] MEDS: EXENATIDE 5 MCG/0.02 ML SQ SCH (22:44)
--- NOTE | 2020-12-16 23:35 | P.HPIM ---
History of Present Illness H&P Date: 12/16/20 Chief Complaint: Left flank pain Patient is a 60-year-old female with a known history of morbid obesity, with BMI 45.8, hypertension, hyperlipidemia, diabetes type 2, BONNIE,/OHS, anxiety/depression and bipolar disorder and chronic back pain and sciatic nerve pain presents to ER with the complaints of back pain and bilateral flank pain. Pain gets worse with movement. No complaints of leg weakness. Denied any dysuria or hematuria. No fever no chills. Patient states that she has been having exertional dyspnea after climbing states and also complaining of dizziness when she climbs to her apartment. No complaints of chest pain. No nausea vomiting or diaphoresis. No cough or sputum production. Denied any recent illnesses. Patient was able to hospital about a year ago with complaints of syncope suspected to be vasovagal and urinary tract infection. CT of the abdomen pelvis showed no acute findings in the abdomen or pelvis. Chest x-ray showed no acute process Patient states that she gained about 10 pounds weight gain recently in the last couple of months. Laboratory data showed WBC 8.4 hemoglobin 12.7 and platelets 252 D-dimer 0.48 Sodium 138 potassium 4.1 chloride 104 BUN 69 creatinine 0.52 Lipase 288 Urinalysis showed cloudy with increased specific gravity and 1+ protein leukocytes trace negative and squamous epithelial cells 16. Review of Systems Constitutional: Patient denies any fever or chills . No generalized weakness or weight loss. Abdomen: Patient denied nausea vomiting and diarrhea and abdominal pain. Cardiovascular: Patient denies any chest pain or short of breath no palpitations. Respiratory: patient denied any cough or sputum production. No shortness of breath Neurologic: Patient denied any numbness or tingling headache. Musculoskeletal: Patient denies any complaints of joint swelling or deformity. Left flank pain Skin: Negative Psychiatric: Negative Endocrine: No heat or cold intolerance. No recent weight gain. Genitourinary: No dysuria or hematuria. All other 14 point ROS negative except the above Past Medical History Past Medical History: Cancer, Diabetes Mellitus, GERD/Reflux, Hyperlipidemia, Hypertension, Skin Disorder Additional Past Medical History / Comment(s): FATTY LIVER, DOES'NT USE CPAP MAC BEATRIZ. PAST MELANOMA ON BACK OF LT SHOULDER, HIATAL HERNIA, ANX.DEPRESSION, BIPOLAR, BROKE RT FOOT 2013, CHRONIC BACK PAIN SCIATIC NERVE PAIN DOES DOWN RT BUTTOCK/LEG, "SEASONAL ASTHMA"/BRONCHITS History of Any Multi-Drug Resistant Organisms: None Reported Past Surgical History: Hysterectomy, Tonsillectomy Additional Past Surgical History / Comment(s): foot, tendon repair, melanoma removal Past Anesthesia/Blood Transfusion Reactions: No Reported Reaction Past Psychological History: Anxiety, Bipolar, Depression Past Alcohol Use History: Occasional Past Drug Use History: None Reported - Past Family History Father Family Medical History: Cancer Additional Family Medical History / Comment(s): at age 64 from lung cancer w/mets to brain Mother Family Medical History: Hypertension, Renal Disease Medications and Allergies Home Medications Medication Instructions Recorded Confirmed Type Zolpidem [Ambien] 10 mg PO HS 12/05/16 12/16/20 History atenoloL [Tenormin] 25 mg PO DAILY 12/05/16 12/16/20 History clonazePAM [KlonoPIN] 0.5 mg PO HS 12/05/16 12/16/20 History Exenatide [Byetta] 5 mcg SQ BID 11/21/19 12/16/20 History Gabapentin [Neurontin] 300 mg PO BID 11/21/19 12/16/20 History Vilazodone HCl [Viibryd] 40 mg PO DAILY 11/21/19 12/16/20 History metFORMIN HCL [Glucophage] 1,000 mg PO BID 11/21/19 12/16/20 History Dextroamphetamine/Amphetamine 40 mg PO QAM 12/16/20 12/16/20 History [Adderall Xr] QUEtiapine FUMARATE [SEROquel XR] 400 mg PO HS 12/16/20 12/16/20 History QUEtiapine [SEROquel] 50 mg PO QAM 12/16/20 12/16/20 History clonazePAM [KlonoPIN] 0.5 mg PO DAILY PRN 12/16/20 12/16/20 History Cyclobenzaprine [Flexeril] 10 mg PO TID PRN 3 Days #12 tab 12/18/20 Rx HYDROcodone/APAP 5-325MG [[place] 1 tab PO Q6HR PRN 3 Days #12 tab 12/18/20 Rx 5-325] Allergies Allergy/AdvReac Type Severity Reaction Status Date / Time aminophylline Allergy Rash/Hives Verified 12/16/20 07:50 levofloxacin [From Levaquin] Allergy Rash/Hives Verified 12/16/20 07:50 phenobarbital Allergy Rash/Hives Verified 12/16/20 07:50 duloxetine [From Cymbalta] AdvReac muscle pain Verified 12/16/20 07:50 Physical Exam Vitals: Vital Signs Temp Pulse Pulse Resp BP BP Pulse Ox 12/16/20 10:10 97.7 F 58 L 17 123/75 94 L 12/16/20 06:59 64 16 138/69 99 12/16/20 05:31 98.1 F 74 16 171/81 100 Intake and Output 12/15/20 12/16/20 12/16/20 22:59 06:59 14:59 Other: Voiding Method Incontinent Weight 140.614 kg PHYSICAL EXAMINATION: Patient is lying in the bed comfortably, no acute distress, awake alert and oriented.. HEENT: Normocephalic. Neck is supple. Pupils reactive. Nostrils clear. Oral cavity is moist. Neck reveals no JVD, carotid bruits, or thyromegaly. CHEST EXAMINATION: Trachea is central. Symmetrical expansion. Bibasilar diminished sounds. No wheezing or rhonchi.. CARDIAC: Normal S1, S2 with no gallops. No murmurs ABDOMEN: Soft. Bowel sounds normal. No organomegaly. No abdominal bruits. Extremities: reveal no edema. No clubbing or cyanosis Neurologically awake, alert, oriented x3 with well-coordinated movements. No focal deficits noted Skin: No rash or skin lesions. Psychiatric: Coperative. Nonsuicidal Musculoskeletal: No joint swelling or deformity. Normal range of motion. Results CBC & Chem 7: 12/17/20 06:31 12/17/20 06:31 Labs: Abnormal Lab Results - Last 24 Hours (Table) 12/16/20 12/16/20 Range/Units 05:40 06:24 Glucose 139 H (74-99) mg/dL Total Protein 5.9 L (6.3-8.2) g/dL Urine Appearance Cloudy H (Clear) Ur Specific [place] 1.036 H (1.001-1.035) Urine Protein 1+ H (Negative) Ur Squamous Epith Cells 16 H (0-4) /hpf Calcium Oxalate Crystal Few H (None) /hpf Urine Mucus Rare H (None) /hpf Thrombosis Risk Factor Assmnt - DVT/VTE Prophylaxis DVT/VTE Prophylaxis: Pharmacologic Prophylaxis ordered Assessment and Plan Assessment: Intractable left flank pain and back pain. Likely musculoskeletal. No evidence of urinary tract infection. Morbid obesity with BMI 45.8 Exertional dyspnea possible obesity hypoventilation Possible obstructive sleep apnea Hypertension Hyperlipidemia GERD Diabetes type 2 [id number] Chronic back pain and sciatic nerve pain Anxiety/depression and bipolar disorder DVT prophylaxis with heparin subcu. Plan: Patient will be continued Toradol, Dilaudid for intractable back pain. Ba Continue gentle IV hydration. . D-dimer was ordered to rule out PE since the patient is having exertional dyspnea and dizziness. Follow-up TSH level. Continue to monitor closely and symptomatic management. Patient will pulmonary follow-up for possible obstructive sleep apnea. Discussed with patient and all questions were answered. Time with Patient: Greater than 30
[2020-12-17] MEDS: HEPARIN SODIUM,PORCINE/PF 5,000 UNIT/0.5 ML SYRINGE SQ SCH ×3 (00:43→15:36)
[2020-12-17] MEDS: SODIUM CHLORIDE 0.9% 1,000 ML IV SCH ×2 (05:01→16:26)
[2020-12-17] MEDS: ONDANSETRON 4 MG/2 ML VIAL IVP PRN (06:11)
[2020-12-17 07:00] LABS: Basophils # (A) 0.1 k/uL (0-0.2); Basophils % (A) 1 %; Eosinophils # (A) 0.3 k/uL (0-0.7); Eosinophils % (A) 4 %; HCT 41.4 % (34.0-46.0); HGB 13.3 gm/dL (11.4-16.0); Lymphocytes # (A) 2.1 k/uL (1.0-4.8); Lymphocytes % (A) 28 %; MCH 29.5 pg (25.0-35.0); MCV 92.2 fL (80.0-100.0); Mean Platelet Volume 7.2; Monocytes # (A) 0.5 k/uL (0-1.0); Monocytes % (A) 6 %; Neutrophils # (A) 4.4 k/uL (1.3-7.7); Neutrophils % (A) 59 %; Platelet Count 253 k/uL (150-450); RBC 4.49 m/uL (3.80-5.40); RDW 14.3 % (11.5-15.5); WBC 7.5 k/uL (3.8-10.6)
[2020-12-17] MEDS: NON FORMULARY DRUG (Dextroamphetamine/Amphetamine [Adderall Xr] 20 MG Cap.Er.24h) PO SCH (07:55)
[2020-12-17] MEDS: EXENATIDE 5 MCG/0.02 ML SQ SCH ×2 (07:56→21:58)
[2020-12-17] MEDS: NON FORMULARY DRUG (Vilazodone Hcl [Viibryd] 40 MG Tablet) PO SCH (07:56)
[2020-12-17] MEDS: GABAPENTIN 300 MG CAP PO SCH ×2 (08:06→21:26)
[2020-12-17] MEDS: QUEtiapine 50 MG TAB PO SCH (08:06)
[2020-12-17] MEDS: metFORMIN 500 MG TAB PO SCH ×2 (08:06→21:26)
[2020-12-17] MEDS: QUEtiapine 200 MG TAB PO SCH ×2 (08:06→21:26)
[2020-12-17] MEDS: atenoloL 25 MG TAB PO SCH (08:06)
[2020-12-17 12:42] VITALS: RESP 16
[2020-12-17 12:56] LABS: African American GFR (CKD) 107.6 (60.0-200.0); Anion Gap 9.3 mmol/L (4.00-12.00); BUN/Creat Ratio 17.14 Ratio (12.00-20.00); Calcium 9.3 mg/dL (8.7-10.3); Carbon Dioxide 28.7 mmol/L (21.6-31.8); Non-African American GFR(CKD) 92.9 (60.0-200.0); Potassium 4.5 mmol/L (3.5-5.5)
[2020-12-17] MEDS: clonazePAM 0.5 MG TAB PO SCH (21:26)
[2020-12-17] MEDS: QUEtiapine 100 MG TAB PO SCH (21:26)
[2020-12-18] MEDS: HEPARIN SODIUM,PORCINE/PF 5,000 UNIT/0.5 ML SYRINGE SQ SCH ×2 (00:26→08:15)
[2020-12-18] MEDS: MORPHINE SULFATE 4 MG/ML SYRINGE IV PRN (05:13)
[2020-12-18] MEDS: SODIUM CHLORIDE 0.9% 1,000 ML IV SCH (05:14)
[2020-12-18] MEDS: EXENATIDE 5 MCG/0.02 ML SQ SCH (08:09)
[2020-12-18] MEDS: NON FORMULARY DRUG (Vilazodone Hcl [Viibryd] 40 MG Tablet) PO SCH (08:09)
[2020-12-18] MEDS: NON FORMULARY DRUG (Dextroamphetamine/Amphetamine [Adderall Xr] 20 MG Cap.Er.24h) PO SCH (08:09)
[2020-12-18] MEDS: atenoloL 25 MG TAB PO SCH (08:15)
[2020-12-18] MEDS: GABAPENTIN 300 MG CAP PO SCH (08:15)
[2020-12-18] MEDS: QUEtiapine 200 MG TAB PO SCH (08:15)
[2020-12-18] MEDS: metFORMIN 500 MG TAB PO SCH (08:15)
[2020-12-18] MEDS: QUEtiapine 50 MG TAB PO SCH (08:36)
[2020-12-18] MEDS ORDERED: VIIBRYD 40 MG PO SCH (09:00)
[2020-12-18 12:52] VITALS: BP 153/80; PULSE 63; TEMP 98.1
== END 2020-12-18 12:55 | disposition home or self-care (01) ==
LOC: EC 05:30 → 5NMEDONC 07:21
PROVIDERS: ADMIT Hospitalist; ATTEND Hospitalist
DX: R10.9 Unspecified abdominal pain (principal); G89.29 Other chronic pain; M54.9 Dorsalgia, unspecified; M54.31 Sciatica, right side; R06.09 Other forms of dyspnea; R42 Dizziness and giddiness; L98.9 Disorder of the skin and subcutaneous tissue, unspecified; E11.9 Type 2 diabetes mellitus without complications; J45.998 Other asthma; E78.5 Hyperlipidemia, unspecified; I10 Essential (primary) hypertension; K21.9 Gastro-esophageal reflux disease without esophagitis; F31.9 Bipolar disorder, unspecified; F41.9 Anxiety disorder, unspecified; K76.0 Fatty (change of) liver, not elsewhere classified; K44.9 Diaphragmatic hernia without obstruction or gangrene; E66.01 Morbid (severe) obesity due to excess calories; Z68.42 Body mass index [BMI] 45.0-49.9, adult; Z79.84 Long term (current) use of oral hypoglycemic drugs; Z79.899 Other long term (current) drug therapy; Z88.1 Allergy status to other antibiotic agents; Z88.8 Allergy status to other drugs, medicaments and biological substances; Z85.820 Personal history of malignant melanoma of skin; Z90.710 Acquired absence of both cervix and uterus; Z98.890 Other specified postprocedural states; Z87.81 Personal history of (healed) traumatic fracture; Z90.49 Acquired absence of other specified parts of digestive tract; Z87.440 Personal history of urinary (tract) infections; Z80.1 Family history of malignant neoplasm of trachea, bronchus and lung; Z82.49 Family history of ischemic heart disease and other diseases of the circulatory system; Z84.1 Family history of disorders of kidney and ureter
CPT/HCPCS: 96376 ×4; 96361 ×3; 96372 ×3; 96375 ×2; 96374; 99285; 36415; 93005; 85379; 80053; 80048; 84443; 82150; 83690; 84484; 85025 ×2; 81001; 71045; 74176; G0378 ×3; J2270 ×2; J2405 ×2; J1170; J1885; J1644 ×3

== ENCOUNTER → 2021-09-15 | Outpatient (CLI) | payer BC ==
--- NOTE | 2021-09-15 15:20 | NM ---
EXAMINATION TYPE: NM bone/joint limited DATE OF EXAM: 09/15/2021 COMPARISON: CT 08/26/2021, chest x-ray 12/16/2020, CT chest 11/21/2019 HISTORY: TECHNIQUE: After the intravenous administration of 24.7 mCi Tc 99m MDP. Images acquired 3 hours pos t injection. Multiple views of the chest, whole-body scanning are submitted. Uptake within the shoulders, sternomanubrial joints, knees, ankles and feet is likely degenerative. U ptake in the thoracic spine likely due to hypertrophic changes, there is significant spondylosis pres ent. Soft tissue uptake is unremarkable. Uptake along the greater trochanter on the right could be du e to partial gluteal tendon tear, trochanteric bursitis. IMPRESSION: Probable degenerative changes and additional findings above.
== END | disposition home or self-care (01) ==
LOC: RADNMMAIN 09:32
PROVIDERS: ATTEND Family Medicine
DX: R07.81 Pleurodynia (principal)
CPT/HCPCS: 78300; A9503